=== PATIENT | female | born 1995 | race Two or more races ===

== ENCOUNTER 2017-01-14 02:31 | Emergency (ER) | payer OTHER ==
[~2017-01-14] VITALS: Ht 157.5 cm; Wt 54.9 kg
[2017-01-14] MEDS ORDERED: NKM (02:47)
[2017-01-14 02:50] VITALS: BP 130/98
[2017-01-14 03:14] LABS: APPEARANCE,URINE CLOUDY; KETONES,URINE 1+ (NEGATIVE); LEUKOCYTE ESTERASE ,URINE 1+ (NEGATIVE); NITRITE,URINE POSITIVE (NEGATIVE); PH,URINE 5 (4.5-8.0); PROTEIN,URINE 2+ (NEGATIVE); UROBILINOGEN,URINE 1 MG/DL (0.0-1.0)
--- NOTE | 2017-01-14 03:14 | Emergency Room Report ---
History of Present Illness General Chief Complaint: Vaginal Source: Patient Present Illness HPI 21 YO F with "heavy period today" and vaginal cramping with bleeding. Currently asymptomatic. LMP was 2 months ago, usually regular. Patient thinks this month is heavier "because it had 2 months of bleeding to do at once." Denies , states she did negative home test this week. Denies abd pain, nausea/vomiting, diarrhea, history of STDs. Took tylenol for pain with minimal improvement. Allergies: Coded Allergies: No Known Allergies (Unverified , 01/14/17) Patient History Past Medical History: none Past Surgical History: none Pertinent Family History: none Social History: Denies: alcohol use, drug use, smoking Last Menstrual Period: January Now: No Immunizations: UTD Reviewed Nursing Documentation: PMH: Agreed, PSxH: Agreed Nursing Documentation-PMH Past Medical History: No Stated History Review of Systems All Other Systems: negative except mentioned in HPI Physical Exam Vital Signs Date Time Temp Pulse Resp B/P Pulse Ox O2 Delivery O2 Flow Rate FiO2 01/14/17 02:44 98.4 78 16 137/91 100 Room Air Sp02 EP Interpretation: reviewed, normal General Appearance: normal inspection, well appearing, no apparent distress, alert, GCS 15, non-toxic Head: normocephalic, atraumatic Eyes: bilateral eye EOMI, bilateral eye PERRL ENT: normal ENT inspection, hearing grossly normal, normal voice Neck: normal inspection, full range of motion, supple, no bony tend Respiratory: normal inspection, lungs clear, normal breath sounds, no respiratory distress, no retraction, no wheezing Cardiovascular #1: regular rate, rhythm, no edema Gastrointestinal: normal inspection, normal bowel sounds, non tender, soft, no guarding, no hernia Genitourinary: no CVA tenderness Musculoskeletal: normal inspection, back normal, normal range of motion, Libertad' s Sign negative Neurologic: normal inspection, alert, oriented x3, responsive, sales forecast analyst III-XII nml as tested, motor strength/tone normal, speech normal Psychiatric: normal inspection, judgement/insight normal, mood/affect normal Skin: normal inspection, normal color, no rash Medical Decision Making Diagnostic Impression: Primary Impression: Vaginal bleeding Additional Impression: UTI (urinary tract infection) Qualified Codes: N30.01 - Acute cystitis with hematuria ER Course Urine preg negative UA: nitrite positive IM toradol given here Rx Ibuprofen PRN vaginal cramping, Macrobid for UTI PMD followup Return to ER for heavy bleeding, pain Last Vital Signs Date Time Temp Pulse Resp B/P Pulse Ox O2 Delivery O2 Flow Rate FiO2 01/14/17 02:50 98.4 87 16 130/98 100 Room Air Status: improved Disposition: HOME, SELF-CARE Scripts Ibuprofen* (MOTRIN*) 600 Mg Tablet 600 MG ORAL THREE TIMES A DAY for cramps, #30 TAB 0 Refills Prov: FOREIGN ARGUETA M.D. 01/14/17 Nitrofurantoin Monohyd/M-Cryst* (MACROBID 100 MG*) 100 Mg Capsule 100 MG ORAL EVERY 12 HOURS for 7 Days, #14 CAP Prov: FOREIGN ARGUETA M.D. 01/14/17 Referrals: NOT CHOSEN G[facility]ISON/,REFERRING (PCP) FOREIGN ARGUETA M.D. Jan 14, 2017 03:14
[2017-01-14 03:28] LABS: BACTERIA,URINE MANY /HPF; RBC,URINE TNTC /HPF (0 - 2); SQUAMOUS EPITHELIAL CELL,UR FEW /LPF (NONE/OCC)
[2017-01-14] MEDS ORDERED: Ketorolac 60mg Inj IM ONE (03:30)
[2017-01-14] MEDS ORDERED: NITROFURANTOIN100 M2 ORAL (03:36)
[2017-01-14] MEDS ORDERED: IBUPROFEN600 MG ORAL (03:36)
[2017-01-14 03:40] VITALS: BP 128/96
== END 2017-01-14 03:40 | disposition home or self-care (01) ==
LOC: EMR 02:56
DX: N30.01 Acute cystitis with hematuria (principal); N93.9 Abnormal uterine and vaginal bleeding, unspecified
CPT/HCPCS: 81003; 81025; 87086; 96372; 99284

== ENCOUNTER 2017-04-12 11:25 | Emergency (ER) | payer OTHER ==
[~2017-04-12] VITALS: Ht 157.5 cm; Wt 56.7 kg
[~2017-04-12 11:25] MED LIST: IBUPROFEN600 MG ORAL; NITROFURANTOIN100 M2 ORAL; NKM
[2017-04-12 12:22] VITALS: BP 102/60
[2017-04-12 12:35] LABS: APPEARANCE,URINE CLEAR; KETONES,URINE 1+ (NEGATIVE); LEUKOCYTE ESTERASE ,URINE 1+ (NEGATIVE); NITRITE,URINE NEGATIVE (NEGATIVE); PH,URINE 5 (4.5-8.0); PROTEIN,URINE 1+ (NEGATIVE); UROBILINOGEN,URINE 1 MG/DL (0.0-1.0)
[2017-04-12 12:45] LABS: BACTERIA,URINE FEW /HPF; MUCUS,URINE FEW /LPF (NONE/OCC); SQUAMOUS EPITHELIAL CELL,UR MODERATE /LPF (NONE/OCC)
--- NOTE | 2017-04-12 12:45 | Emergency Room Report ---
History of Present Illness General Chief Complaint: Abdominal Pain Source: Patient Present Illness HPI 21 -year-old female presents to the emergency department complaining of dysuria , lower abdominal fullness in addition to frequency x 1 week. Patient reports she had UTI 3 months ago. Patient states that she keeps feeling as though she needs to go to the bathroom however produces little urine when she does with moderate dysuria. Patient denies abdominal tenderness, denies vaginal discharge. Patient states her last menstrual period ended on the . Patient denies recent unprotected intercourse, vaginal discharge or lesions, patient denies dyspareunia. Denies hx of STD's. Patient states she is currently on Depo-Provera. Patient reports her abdominal discomfort has 5 out 10 in severity and described fullness/stretching sensation in the middle lower abdomen. She denies nausea, vomiting, fevers, chills, low back pain, constipation,diarrhea, or hematuria. She denies . Denies CP, Palpitations, LOC, AMS, dizziness, Changes in Vision, Sensation, paresthesias, or a sudden severe headache. Allergies: Coded Allergies: No Known Allergies (Unverified , 01/14/17) Patient History Past Medical History: see triage record Past Surgical History: none Pertinent Family History: none Last Menstrual Period: 03/14/17 Now: No Immunizations: UTD Reviewed Nursing Documentation: PMH: Agreed, PSxH: Agreed Nursing Documentation-PMH Past Medical History: No Stated History Review of Systems All Other Systems: negative except mentioned in HPI Physical Exam Vital Signs Date Time Temp Pulse Resp B/P Pulse Ox O2 Delivery O2 Flow Rate FiO2 04/12/17 11:32 98.1 69 15 102/60 95 Room Air Sp02 EP Interpretation: reviewed, normal General Appearance: no apparent distress, alert, GCS 15, non-toxic Head: normocephalic, atraumatic Eyes: bilateral eye PERRL, bilateral eye normal inspection ENT: hearing grossly normal, normal pharynx, no angioedema, normal voice Neck: full range of motion, supple/symm/no masses Respiratory: lungs clear, normal breath sounds, speaking full sentences Cardiovascular #1: regular rate, rhythm Gastrointestinal: normal bowel sounds, non tender, soft, non-distended, no guarding, no rebound Rectal: deferred Genitourinary: normal inspection, adnexa normal, cervix normal, os closed, other - no CMT or d/c noted on pelvic exam Musculoskeletal: back normal, gait/station normal, normal range of motion Neurologic: alert, oriented x3, responsive, motor strength/tone normal, sensory intact, speech normal Psychiatric: judgement/insight normal, memory normal, mood/affect normal Skin: normal color, no rash, warm/dry, well hydrated Lymphatic: no adenopathy Medical Decision Making PA Attestation Dr. Mcclellan is my supervising Physician whom patient management has been discussed with. Diagnostic Impression: Primary Impression: Dysuria Additional Impression: Cystitis ER Course 21 -year-old female presents to the emergency department complaining of dysuria , lower abdominal fullness in addition to frequency x 1 week. Patient reports she had UTI 3 months ago. Patient states that she keeps feeling as though she needs to go to the bathroom however produces little urine when she does with moderate dysuria. Patient denies abdominal tenderness, denies vaginal discharge. Patient states her last menstrual period ended on the 17. Patient denies recent unprotected intercourse, vaginal discharge or lesions, patient denies dyspareunia.Denies hx of STD's. Patient states she is currently on Depo-Provera. Patient reports her abdominal discomfort has 5 out 10 in severity and described fullness/stretching sensation in the middle lower abdomen. She denies nausea, vomiting, fevers, chills, low back pain, constipation,diarrhea, or hematuria. She denies . Ddx considered but are not limited to UTi , Pyelo, STI, Stone, Cystitis, , PID Vital signs: are WNL, pt. is afebrile H&PE are most consistent with UTI ORDERS: - UA labs are attached: no WBC's no leukocytes, some bacteria , moderate epithelial cells, rbc's noted- most indicative of contamination and cystitis, not consistent with infection. - Wet Mount: No Trich, no clue, No bacteria- many epithelial cells. ED INTERVENTIONS: -Pyridium d/w pt. the results of laboratory work. will try conservative treatment with and follow up with OBGYN. DISCHARGE: At this time pt. is stable for d/c to home. Will provide printed patient care instructions, and any necessary prescriptions. Care plan and follow up instructions have been discussed with the patient prior to discharge. Labs Test 04/12/17 12:05 Urine Color Yellow Urine Appearance Clear Urine pH 5 (4.5-8.0) Urine Specific [place] 1.020 (1.005-1.035) Urine Protein 1+ (NEGATIVE) Urine Glucose (UA) Negative (NEGATIVE) Urine Ketones 1+ (NEGATIVE) Urine Occult Blood 5+ (NEGATIVE) Urine Nitrite Negative (NEGATIVE) Urine Bilirubin Negative (NEGATIVE) Urine Urobilinogen 1 MG/DL (0.0-1.0) Urine Leukocyte Esterase 1+ (NEGATIVE) Urine RBC 10-15 /HPF (0 - 2) Urine WBC 2-4 /HPF (0 - 2) Urine Squamous Epithelial Cells Moderate /LPF (NONE/OCC) Urine Bacteria Few /HPF (NONE) Urine Mucus Few /LPF (NONE/OCC) Urine HCG, Qualitative Negative Last Vital Signs Date Time Temp Pulse Resp B/P Pulse Ox O2 Delivery O2 Flow Rate FiO2 04/12/17 12:22 98.1 15 102/60 95 Room Air 04/12/17 11:32 69 Disposition: HOME, SELF-CARE Condition: Stable Scripts Phenazopyridine Hcl* (PYRIDIUM*) 200 Mg Tablet 200 MG ORAL THREE TIMES A DAY for 3 Days, #10 TAB 0 Refills Prov: Giselle Clark 04/12/17 Referrals: [facility] (PCP) Patient Instructions: Dysuria, Interstitial Cystitis Additional Instructions: Take medications as directed. Follow up with PCP in 3-5 days Return sooner to ED if new symptoms occur, or current symptoms become worse. Pyridium will cause your urine to change color (Red/Clark), this is a normal side effect of the medication. - Please note that this Emergency Department Report was dictated using [employer] logic controller assembler technology software, occasionally this can lead to erroneous entry secondary to interpretation by the dictation equipment. Giselle Clark April 12, 2017 12:45
[2017-04-12] MEDS ORDERED: PHENAZOPYRIDIN200 MG ORAL (13:12)
[2017-04-12 13:15] VITALS: BP 102/60
== END 2017-04-12 13:15 | disposition home or self-care (01) ==
LOC: EMR 12:09
DX: R30.0 Dysuria (principal); N30.90 Cystitis, unspecified without hematuria
CPT/HCPCS: 58999; 81003; 81025; 87210; 99283

== ENCOUNTER 2017-05-08 02:41 | Inpatient (IN) | payer OTHER ==
[~2017-05-08] VITALS: Ht 157.5 cm; Wt 54.4 kg
[2017-05-08] VITALS (10 sets, daily range): BP systolic 111–130; BP diastolic 62–106
[~2017-05-08 02:41] MED LIST changes: +PHENAZOPYRIDIN200 MG ORAL
--- NOTE | 2017-05-08 03:25 | Emergency Room Report ---
History of Present Illness General Chief Complaint: Abdominal Pain Source: Patient, Significant Other Present Illness HPI Patient with few days of worsening suprapubic and RLQ pain. Menses is abnormal. No d/c. No fevers. Period is late and had been irregular. No dysuria. Pain is severe 9/10, constant, not radiating, aching pressure. No dizziness. No NVD. No meds taken. IAb last year September. No chest pain, SOB, cough, URI sy., rashes, extremity pain. No depression. Allergies: Coded Allergies: No Known Allergies (Unverified , 01/14/17) Patient History Past Medical History: see triage record Social History: Reports: drug use - thc, Denies: smoking Social History Narrative with boyfriend Last Menstrual Period: 04/30/17 Now: No Reviewed Nursing Documentation: PMH: Agreed, PSxH: Agreed Review of Systems All Other Systems: negative except mentioned in HPI Physical Exam Vital Signs Date Time Temp Pulse Resp B/P Pulse Ox O2 Delivery O2 Flow Rate FiO2 05/08/17 02:46 98.4 87 16 121/78 99 Room Air Sp02 EP Interpretation: reviewed, normal General Appearance: well appearing, no apparent distress, GCS 15 Head: normocephalic Eyes: bilateral eye PERRL, bilateral eye normal inspection ENT: moist mucus membranes Neck: supple Respiratory: lungs clear, normal breath sounds Cardiovascular #1: regular rate, rhythm Cardiovascular #2: 2+ radial (R) Gastrointestinal: normal inspection, normal bowel sounds, non tender, no mass, non-distended Genitourinary: cervix normal, os closed, other - vaginal blood and + CMT, normal size uterus Musculoskeletal: back normal, gait/station normal, normal range of motion Neurologic: alert, oriented x3, grossly normal Psychiatric: mood/affect normal Skin: normal inspection, warm/dry Procedures Critical Care Time Critical Care Time Total Critical Care Time: 30 min bedside evaluation and treatment excludes procedures (EKG). Reason for critical care: abdominal pain, ectopic with hemorrhage Possible complications: hypotension, hypertension, WA, shock, arrhythmias, metabolic acidosis, end organ damage, respiratory failure. Interventions: Hydration, pain control, consult with Ob for immediate intervention, repeated evaluations Course: Patient with abd pain and irreg menses. Eval with possible PID vs ectopic. U/S c/w ectopic with bleed. Repeated evaluations and treatment for pain. Emergent consultation with Ob. Arrange pre-op labs and for possible blood transfusion. Consultations: nursing staff, EMS, material handling warehouse supervisor Performed by: Dr. Mcclellan Tolerated well condition = serious Medical Decision Making Diagnostic Impression: Primary Impression: Ectopic Qualified Codes: O00.90 - Unspecified ectopic without intrauterine Additional Impressions: Early stage of Intraabdominal hemorrhage ER Course Patent with abnormal menses and lower abdominal pain. Ddx: PID, ectopic, appendicitis, ruptured ovarian cyst amongst others. Significant CMT - PID or ectopic most likely. Evaluation with labs, ultrasound. Treatment with IV hydration, reglan, benadryl. Exam c/w PID or ectopic. With elevated WBC will cover for PID. Needs admission. Preg found in lab review (not called). U/S c/w ectopic "a lot of blood". Quant 1501. Discussed with Dr. Landry at 6: 30. Pasty after ultrasound with increased pain. Morphine ordered. Dr. Landry here examining the patient. H/H drops 3 points. Needs urgent operation. VS stable. Blood ready. Admit Zachariah Simms. Laboratory Tests Test 05/08/17 03:50 05/08/17 05:40 White Blood Count 12.9 K/UL (4.8-10.8) H Red Blood Count 3.45 M/UL (4.20-5.40) L Hemoglobin 11.3 G/DL (12.0-16.0) L Hematocrit 33.4 % (37.0-47.0) L Mean Corpuscular Volume 97 FL (80-99) Mean Corpuscular Hemoglobin 32.9 PG (27.0-31.0) H Mean Corpuscular Hemoglobin Concent 33.9 G/DL (32.0-36.0) Red Cell Distribution Width 11.4 % (11.6-14.8) L Platelet Count 266 K/UL (150-450) Mean Platelet Volume 7.6 FL (6.5-10.1) Neutrophils (%) (Auto) 74.7 % (45.0-75.0) Lymphocytes (%) (Auto) 18.7 % (20.0-45.0) L Monocytes (%) (Auto) 5.5 % (1.0-10.0) Eosinophils (%) (Auto) 0.5 % (0.0-3.0) Basophils (%) (Auto) 0.6 % (0.0-2.0) Urine Color Yellow Urine Appearance Slightly cloudy Urine pH 5 (4.5-8.0) Urine Specific [place] 1.025 (1.005-1.035) Urine Protein 2+ (NEGATIVE) H Urine Glucose (UA) Negative (NEGATIVE) Urine Ketones 4+ (NEGATIVE) H Urine Occult Blood 5+ (NEGATIVE) H Urine Nitrite Negative (NEGATIVE) Urine Bilirubin Negative (NEGATIVE) Urine Urobilinogen 1 MG/DL (0.0-1.0) H Urine Leukocyte Esterase 1+ (NEGATIVE) H Urine RBC 20-30 /HPF (0 - 2) H Urine WBC 0-2 /HPF (0 - 2) Urine Squamous Epithelial Cells Many /LPF (NONE/OCC) H Urine Bacteria Few /HPF (NONE) Urine Mucus Many /LPF (NONE/OCC) H Urine Yeast Few /HPF (NONE) H Urine HCG, Qualitative Positive Sodium Level 140 mEQ/L (135-145) Potassium Level 3.5 mEQ/L (3.4-4.9) Chloride Level 99 mEQ/L (98-107) Carbon Dioxide Level 21 mEQ/L (20-30) Anion Gap 20 (5-15) H Blood Urea Nitrogen 7 mg/dL (7-23) Creatinine 0.5 mg/dL (0.5-0.9) Estimate Glomerular Filtration Rate > 60 mL/min (>60) Glucose Level 98 mg/dL (74-106) Calcium Level 9.5 mg/dL (8.6-10.2) Total Bilirubin 0.5 mg/dL (0.0-1.2) Aspartate Amino Transferase (AST) 19 U/L (5-40) Alanine Aminotransferase (ALT) 10 U/L (3-33) Alkaline Phosphatase 59 U/L (35-104) Total Protein 7.0 g/dL (6.6-8.7) Albumin 4.3 g/dL (3.5-5.2) Globulin 2.7 g/dL Albumin/Globulin Ratio 1.5 (1.0-2.7) Lipase 13 U/L (< 60) Human Chorionic Gonadotropin, Quant 1501 mIU/mL Repeat H/H 9.6/28.3 @ 7:35. EKG Diagnostic Results Rate: normal Rhythm: NSR ST Segments: no acute changes Rhythm Strip Diag. Results EP Interpretation: yes Rhythm: NSR, no PVC's, no ectopy CT/MRI/US Diagnostic Results CT/MRI/US Diagnostic Results : Imaging Test Ordered: pelvic u/s Impression fluid cds- suggested blood, no IUP Last Vital Signs Date Time Temp Pulse Resp B/P Pulse Ox O2 Delivery O2 Flow Rate FiO2 05/08/17 11:15 97.6 89 16 114/68 100 Nasal Cannula 3.0 Status: improved Disposition: ADMITTED INPATIENT Condition: Serious Nelson Mcclellan M.D. May 08, 2017 03:25
[2017-05-08] MEDS ORDERED: Metoclopramide 10mg/2ml Inj IVP ONE (03:30)
[2017-05-08] MEDS ORDERED: DiphenhydrAMINE 50mg/ml Inj IVP ONE (03:30)
[2017-05-08 04:03] LABS: BASOPHILS % (AUTO) 0.6 % (0.0-2.0); EOSINOPHILS % (AUTO) 0.5 % (0.0-3.0); LYMPHOCYTES % (AUTO) 18.7 % (20.0-45.0); MEAN CORPUSCULAR HEMOGLOBIN 32.9 PG (27.0-31.0); MEAN CORPUSCULAR HGB CONC 33.9 G/DL (32.0-36.0); MEAN CORPUSCULAR VOLUME 97 FL (80-99); MEAN PLATELET VOLUME 7.6 FL (6.5-10.1); MONOCYTES % (AUTO) 5.5 % (1.0-10.0); NEUTROPHILS % (AUTO) 74.7 % (45.0-75.0); PLATELET COUNT 266 K/UL (150-450); RED BLOOD COUNT 3.45 M/UL (4.20-5.40); RED CELL DISTRIBUTION WIDTH 11.4 % (11.6-14.8); WHITE BLOOD COUNT 12.9 K/UL (4.8-10.8)
[2017-05-08 04:07] LABS: APPEARANCE,URINE SLIGHTLY CLOUDY; KETONES,URINE 4+ (NEGATIVE); LEUKOCYTE ESTERASE ,URINE 1+ (NEGATIVE); NITRITE,URINE NEGATIVE (NEGATIVE); PH,URINE 5 (4.5-8.0); PROTEIN,URINE 2+ (NEGATIVE); UROBILINOGEN,URINE 1 MG/DL (0.0-1.0)
[2017-05-08 04:19] LABS: ALANINE AMINOTRANSFERASE 10 U/L (3-33); ALBUMIN/GLOBULIN RATIO 1.5 (1.0-2.7); ANION GAP 20 (5-15); ASPARTATE AMINO TRANSFERASE 19 U/L (5-40); CALCIUM 9.5 mg/dL (8.6-10.2); CARBON DIOXIDE 21 mEQ/L (20-30); CHLORIDE 99 mEQ/L (98-107); CREATININE 0.5 mg/dL (0.5-0.9); GLOMERULAR FILTRATION RATE > 60 mL/min (>60); HEMOLYSIS 48; LIPASE 13 U/L (< 60); POTASSIUM 3.5 mEQ/L (3.4-4.9); SODIUM 140 mEQ/L (135-145)
[2017-05-08 04:22] LABS: BACTERIA,URINE FEW /HPF; MUCUS,URINE MANY /LPF (NONE/OCC); RBC,URINE 20-30 /HPF (0 - 2); SQUAMOUS EPITHELIAL CELL,UR MANY /LPF (NONE/OCC); WBC,URINE 0-2 /HPF (0 - 2); YEAST,URINE FEW /HPF
[2017-05-08] MEDS ORDERED: cefTRIAXone 1 GM in NS 55 ML IVPB ONE (05:15)
[2017-05-08] MEDS ORDERED: metroNIDAZOLE 500mg 100 ML IVPB ONE (05:15)
[2017-05-08] MEDS ORDERED: Morphine Sulfate 2mg/ml Inj IVP ONE (06:45)
[2017-05-08 07:53] LABS: BASOPHILS % (AUTO) 0.7 % (0.0-2.0); EOSINOPHILS % (AUTO) 0.2 % (0.0-3.0); LYMPHOCYTES % (AUTO) 23.7 % (20.0-45.0); MEAN CORPUSCULAR HEMOGLOBIN 33.7 PG (27.0-31.0); MEAN CORPUSCULAR HGB CONC 33.9 G/DL (32.0-36.0); MEAN CORPUSCULAR VOLUME 99 FL (80-99); MEAN PLATELET VOLUME 7.6 FL (6.5-10.1); MONOCYTES % (AUTO) 5.1 % (1.0-10.0); NEUTROPHILS % (AUTO) 70.3 % (45.0-75.0); PLATELET COUNT 215 K/UL (150-450); RED BLOOD COUNT 2.85 M/UL (4.20-5.40); RED CELL DISTRIBUTION WIDTH 11.5 % (11.6-14.8)
[2017-05-08] MEDS ORDERED: Ropivacaine 5mg/ml Vial 20ml INJ ONE (08:48)
[2017-05-08] MEDS ORDERED: Lidocaine 1% MPF 10mg/ml 5ml ONE (09:00)
[2017-05-08] MEDS ORDERED: Nimbex 2mg/ml Inj 10ML IVP ONE (09:00)
[2017-05-08] MEDS ORDERED: fentaNYL 250mcg/5ml ONE (09:00)
[2017-05-08] MEDS ORDERED: Dexamethasone 4mg/ml vial ONE (09:00)
[2017-05-08] MEDS ORDERED: Midazolam 2mg/2ml Inj ONE (09:00)
[2017-05-08] MEDS ORDERED: Propofol 10mg/ml 20ml IV ONE (09:00)
[2017-05-08] MEDS ORDERED: Metoclopramide 10mg/2ml Inj ONE (09:00)
[2017-05-08] MEDS ORDERED: Ketorolac 30mg Inj ONE (09:00)
[2017-05-08] MEDS ORDERED: NS Irrig 1000ml ONE (09:00)
[2017-05-08] MEDS ORDERED: LR 1000ml ONE (09:00)
--- NOTE | 2017-05-08 09:07 | Anethesia Preoperative Eval ---
Anesthesia Pre-op PMH/ROS General Date of Evaluation: May 08, 2017 Anesthesiologist: Colin ASA Score: ASA 1 - E Mallampati Score Class I : Soft palate, uvula, fauces, pillars visible Class II: Soft palate, uvula, fauces visible Class III: Soft palate, base of uvula visible Class IV: Only hard plate visible Mallampati Classification: Class I Surgeon: Frantz Diagnosis: Ectopic Surgical Procedure: Laparoscopic salpingoscopy, salpingectomy Anesthesia History: none Family History: no anesthesia problems Allergies: Coded Allergies: No Known Allergies (Unverified , 01/14/17) Medications: see eMAR Past Medical History Cardiovascular: Denies: CAD, HTN, MO, arrhythmia, other, valve dz Pulmonary: Denies: COPD, BEST, asthma, other Gastrointestinal/Genitourinary: Denies: CRI, ESRD, GERD, other Neurologic/Psychiatric: Denies: CVA, TIA, dementia, depression/anxiety, other Endocrine: Denies: DM, hypothyroidism, other, steroids HEENT: Denies: CABAZON (L), CABAZON (R), cataract (L), cataract (R), glaucoma, other Hematology/Immune: Denies: DVT, anemia, bleeding disorder, other Musculoskeletal/Integumentary: Denies: DDD, DJD, OA, RA, edema, other PSxH Narrative: Denies Anesthesia Pre-op Phys. Exam Physician Exam Last Vital Signs Date Time Temp Pulse Resp B/P Pulse Ox O2 Delivery O2 Flow Rate FiO2 05/08/17 08:38 98.4 79 15 113/106 100 Room Air Constitutional: NAD Cardiovascular: RRR Respiratory: CTA Airway Exam Mallampati Score: Class I MO: full ROM: full Teeth: intact Anesthesia Pre-op A/P Labs Hematology Test 05/08/17 03:50 05/08/17 07:35 White Blood Count 12.9 K/UL (4.8-10.8) H 12.0 K/UL (4.8-10.8) H Red Blood Count 3.45 M/UL (4.20-5.40) L 2.85 M/UL (4.20-5.40) L Hemoglobin 11.3 G/DL (12.0-16.0) L 9.6 G/DL (12.0-16.0) L Hematocrit 33.4 % (37.0-47.0) L 28.3 % (37.0-47.0) L Mean Corpuscular Volume 97 FL (80-99) 99 FL (80-99) Mean Corpuscular Hemoglobin 32.9 PG (27.0-31.0) H 33.7 PG (27.0-31.0) H Mean Corpuscular Hemoglobin Concent 33.9 G/DL (32.0-36.0) 33.9 G/DL (32.0-36.0) Red Cell Distribution Width 11.4 % (11.6-14.8) L 11.5 % (11.6-14.8) L Platelet Count 266 K/UL (150-450) 215 K/UL (150-450) Mean Platelet Volume 7.6 FL (6.5-10.1) 7.6 FL (6.5-10.1) Neutrophils (%) (Auto) 74.7 % (45.0-75.0) 70.3 % (45.0-75.0) Lymphocytes (%) (Auto) 18.7 % (20.0-45.0) L 23.7 % (20.0-45.0) Monocytes (%) (Auto) 5.5 % (1.0-10.0) 5.1 % (1.0-10.0) Eosinophils (%) (Auto) 0.5 % (0.0-3.0) 0.2 % (0.0-3.0) Basophils (%) (Auto) 0.6 % (0.0-2.0) 0.7 % (0.0-2.0) Chemistry Test 05/08/17 03:50 05/08/17 05:40 Sodium Level 140 mEQ/L (135-145) Potassium Level 3.5 mEQ/L (3.4-4.9) Chloride Level 99 mEQ/L (98-107) Carbon Dioxide Level 21 mEQ/L (20-30) Anion Gap 20 (5-15) H Blood Urea Nitrogen 7 mg/dL (7-23) Creatinine 0.5 mg/dL (0.5-0.9) Estimat Glomerular Filtration Rate > 60 mL/min (>60) Glucose Level 98 mg/dL (74-106) Calcium Level 9.5 mg/dL (8.6-10.2) Total Bilirubin 0.5 mg/dL (0.0-1.2) Aspartate Amino Transf (AST/SGOT) 19 U/L (5-40) Alanine Aminotransferase (ALT/SGPT) 10 U/L (3-33) Alkaline Phosphatase 59 U/L (35-104) Total Protein 7.0 g/dL (6.6-8.7) Albumin 4.3 g/dL (3.5-5.2) Globulin 2.7 g/dL Albumin/Globulin Ratio 1.5 (1.0-2.7) Lipase 13 U/L (< 60) Human Chorionic Gonadotropin, Quant 1501 mIU/mL Urine Test Test 05/08/17 03:50 Urine HCG, Qualitative Positive Studies Pre-op Studies: EKG - sr Risk Assessment & Plan Assessment: ASA IE Plan: GA Status Change Before Surgery: No Pre-Antibiotics Drug: Ancef 1g Given Within 1 Hr of Incision: Yes Time Given: 09:15 SHARONDA DAVIES M.D. May 08, 2017 09:07
--- NOTE | 2017-05-08 09:15 | Pre-Procedure Note/Attestation ---
Pre-Procedure Note/Attestation Complete Prior to Procedure Procedure Narrative: diagnostic laparoscopy, possible salpingectomy, possible salpingostomy, dilation and curettage Indications for Procedure Pre-Operative Diagnosis: hemoperitoneum, pain cg 1200 Attestation I attest that I discussed the nature of the procedure; its benefits; risks and complications; and alternatives (and the risks and benefits of such alternatives ), prior to the procedure, with the patient (or the patient's legal retail customer service representative). I attest that, if there was a reasonable possibility of needing a blood transfusion, the patient (or the patient's legal retail customer service representative) was given the [facility] standardized written summary, pursuant to the [place] Blood Safety Act ([place] Health and Safety Code # 1645, as amended). I attest that I re-evaluated the patient just prior to the surgery and that there has been no change in the patient's H&P, except as documented below: URSULA GRIJALVA May 08, 2017 09:15
[2017-05-08] MEDS ORDERED: LR 1000ml 1,000 ML IVLG SCH (09:26)
[2017-05-08] MEDS ORDERED: Midazolam 2mg/2ml Inj IVP PRN (09:30)
[2017-05-08] MEDS ORDERED: HYDROmorphone 1mg/ml Carpuject SUBQ PRN (09:30)
[2017-05-08] MEDS ORDERED: Hydromorphone 0.5mg/0.5ml inj IVP PRN (09:30)
[2017-05-08] MEDS ORDERED: Tylenol #3 tab (300mg/30mg) ORAL PRN (09:30)
[2017-05-08] MEDS ORDERED: DiphenhydrAMINE 50mg/ml Inj IVP PRN ×2 (09:30)
[2017-05-08] MEDS ORDERED: Metoclopramide 10mg/2ml Inj IVP PRN (09:30)
[2017-05-08] MEDS ORDERED: fentaNYL 100 mcg/2 mL IV PRN (09:30)
[2017-05-08] MEDS ORDERED: Norco 5mg/325mg tab ORAL PRN (09:30)
[2017-05-08] MEDS ORDERED: NS Irrig 1000ml IRRIG ONE (09:57)
[2017-05-08] MEDS ORDERED: Zolpidem 5mg tab ORAL PRN (10:15)
[2017-05-08] MEDS ORDERED: Morphine Sulfate 2mg/ml Inj IVP PRN (10:15)
[2017-05-08] MEDS ORDERED: LORazepam Inj 2mg/ml 1ml IV PRN (10:15)
[2017-05-08] MEDS ORDERED: Miralax 17gm pkt ORAL PRN (10:15)
[2017-05-08] MEDS ORDERED: Mylanta II UD 30ml ORAL PRN (10:15)
--- NOTE | 2017-05-08 10:36 | Immediate Post-Op Evaluation ---
Immediate Post-Op Evalulation Immediate Post-Op Evalulation Procedure: Laparoscopic salpingoscopy, excision ectopic Date of Evaluation: May 08, 2017 Time of Evaluation: 10:38 IV Fluids: 1.2L Blood Products: 0 Estimated Blood Loss: 700 Urinary Output: 700 Blood Pressure Systolic: 129 Blood Pressure Diastolic: 77 Pulse Rate: 117 Respiratory Rate: 17 O2 Sat by Pulse Oximetry: 100 Temperature (Fahrenheit): 97.4 Pain Score (1-10): 0 Nausea: No Vomiting: No Complications 0 Patient Status: awake, reacts, patent, none Hydration Status: adequate Drug: Ancef 1g Given Within 1 Hr of Incision: Yes Time Given: 09:15 SHARONDA DAVIES M.D. May 08, 2017 10:36
[2017-05-08] MEDS ORDERED: D5 1/2NS 1,000 ML IV SCH (12:00)
[2017-05-08] MEDS ORDERED: D5 1/2NS 1000ml IV ONE (14:06)
[2017-05-09 08:58] VITALS: BP 114/68
--- NOTE | 2017-05-09 08:58 | 48 Hour Post Anesthesia Eval ---
Post Anesthesia Evaluation Procedure: Laparoscopic salpingoscopy, excision ectopic Date of Evaluation: May 08, 2017 Time of Evaluation: 11:30 Blood Pressure Systolic: 114 0: 68 Pulse Rate: 89 Respiratory Rate: 16 Temperature (Fahrenheit): 97.6 O2 Sat by Pulse Oximetry: 100 Airway: patent Nausea: No Vomiting: No Pain Intensity: 1 Hydration Status: adequate Cardiopulmonary Status: at baseline Mental Status/LOC: patient returned to baseline Post-Anesthesia Complications: 0 Follow-up care needed: ready to discharge SHARONDA DAVIES M.D. May 09, 2017 08:58
--- NOTE | 2017-05-09 09:48 | Brief Operative Note ---
Immediate Post Operative Note Operative Note Pre-op Diagnosis: hemoperitoneum, pain bhcg 1200 Procedure: laparoscopic right salpingectomy, dilation and curettage Post-op Diagnosis: right ruptured ectopic Surgeon: ben Anesthesia: general Specimen: yes Complications: none Condition: stable Fluids: per anesthesia Estimated Blood Loss: volume - 400 cc hemoperitoneum Drains: none Implant(s) used?: No URSULA GRIJALVA May 09, 2017 09:48
--- NOTE | 2017-05-09 20:07 | Cardiology Report ---
APPROVED REPORT EKG Measurement Heart [id number] Sinus rhythm with marked sinus arrhythmia Otherwise normal ECG
--- NOTE | 2017-05-10 08:01 | History and Physical Report ---
DATE: 05/08/2017 GYNECOLOGY EVALUATION REASON FOR EVALUATION: The patient is a 21-year-old, G1, P0, who presents to the emergency room for lower abdominal pain. HISTORY OF PRESENT ILLNESS: The patient is a 21-year-old, who presented to the emergency room on 04/14/2017. She presents to the emergency room of [facility] with lower abdominal pain more on the right side. The patient also had a few days of bleeding, which is early to have her period. Her last period one started on 04/14/2017. The patient was unaware that she was and the test was positive in the emergency room and she was previously in the emergency room for bladder infection on 04/12/2017 and at that point, her test was negative. PAST MEDICAL HISTORY: None. PAST SURGICAL HISTORY: None. ALLERGIES: None. SOCIAL HISTORY: The patient lives with her boyfriend and her boyfriend's mother. PHYSICAL EXAMINATION: VITAL SIGNS: Blood pressure 110/70, respiratory rate 18, temperature afebrile, and heart rate 86. HEAD AND NECK: Pupils are equal and reactive to light. LUNGS: Deferred to the ER doctor. CARDIAC: Deferred to the ER doctor. ABDOMEN: Soft, slightly distended. Rebound and guarding, right lower quadrant. PELVIC: Exam is deferred. As per the patient's request emergency room physician performed and she had cervical motion tenderness and extreme pain after the pelvic exam. LABORATORY AND DIAGNOSTIC DATA: Ultrasound performed on 05/08/2017, revealed no intrauterine and moderate blood in the pelvis and abdomen. Her white count was slightly increased at 12.4. ASSESSMENT: The patient is a 21-year-old, G1, P0, with bleeding. No intrauterine and blood in the abdomen. Also rebound and guarding on exam consistent with a surgical abdomen. PLAN: Plan is for diagnostic laparoscopy and probable salpingostomy versus salpingectomy for ruptured ectopic . Keri Landry M.D. DR: ANNETTE JOB#: [id number] CC: RAMU
--- NOTE | 2017-05-10 08:25 | Discharge Summary ---
Discharge Summary Hospital Course Date of Admission May 08, 2017 at 06:28 Date of Discharge May 08, 2017 at 14:07 Admitting Diagnosis right ectopic Reason for Hospitalization: right ectopic , likely intraabdominal hemorrhage LUIS Ng is a 21 year old female who was admitted on May 08, 2017 at 06:28 for Pelvic Inflammatory Disease Procedures s/p 05/08 -laparoscopic right salpingectomy, dilation and curettage Hospital Course US revealed R ectopic and fluid in cds suggestive of blood HCG 1501 mild leucocytosis, increasing lower abdominal pain medicated for pain in ED HH dropped 3 points, blood on standby if needed READING INTERVENTIONIST consult urgently requested patient was seen and examined in ER and taken to surgery s/p laparoscopic right salpingectomy, dilation and curettage 05/08 400 cc hemoperitoneum HH -9.6/28.3 pain management on the floor patient voided pain controlled tolerated diet surgeon cleared for dc and fup as outpatient with READING INTERVENTIONIST due to rapid and unexpected improvement in patient condition, the patient was discharged in 1 day FINAL DIAGNOSES R ruptured ectopic hemoperitoneum s/p 05/08 -laparoscopic right salpingectomy, dilation and curettage Discharge Condition Upon Discharge: stable Discharge Disposition Patient was discharged to Home (01) Discharge Diagnoses: Discharge Instructions Discharge Instructions Special Instructions I have been assigned to complete a D/C Summary on this account. I was not involved in the patient management Colleen Goss NP ([place]) May 10, 2017 08:25
--- NOTE | 2017-05-10 09:01 | Operative Note - Dictated ---
DATE OF OPERATION: 05/08/2017 PREOPERATIVE DIAGNOSIS: Ruptured ectopic , right side. POSTOPERATIVE DIAGNOSIS: Ruptured ectopic , right side. PROCEDURE: Diagnostic laparoscopy, right salpingectomy, dilatation and curettage. SURGEON: Keri Landry M.D. ANESTHESIOLOGIST: Magda Du M.D. ANESTHESIA: General endotracheal. ESTIMATED BLOOD LOSS: Minimal with surgery but about 400 mL pneumoperitoneum. COMPLICATIONS: None. Right tube and ovary within normal limits. Left ovary within normal limits. A large left ampullary ectopic with bleeding from the distal end. PROCEDURE IN DETAIL: After ensuring informed consent, the patient was taken to the operating room where general anesthesia was induced. The patient was sterilely prepped and draped and placed in dorsal lithotomy position with legs up in [place] stirrups. Weighted speculum was placed in the vagina. Cervix was easily dilated to a 8 Hegar dilator. Endometrial contents were sampled and a HUMI type manipulator was placed inside the uterine cavity. Next, attention was turned to the abdomen where a small incision was made in the umbilicus. After injection of local anesthetic, Veress needle was placed inside the peritoneal cavity and intraperitoneal placement was confirmed with low opening pressures. Next, a 5 millimeter trocar was placed inside the peritoneal cavity and intraperitoneal placement was confirmed with the laparoscope. Next, left lateral 5 mm port was introduced under direct visualization and a 10 mm suprapubic port was introduced under direct visualization. The pelvis was explored. There was a large ruptured right ampullary ectopic with bleeding from the distal end and about 450 mL of blood in the peritoneal cavity. Considering how large and distended the tube was ( hydrosalpinx) and the bleeding. A decision was made to proceed with salpingectomy. Right tube was removed with laparoscopic bipolar cautery instrument. Mainly the broad ligament was first cauterized and then transected until all of the tube were removed. Tube was placed in an endobag and removed through the 10 mm port. Again, pelvis was explored, excellent hemostasis was assured. Left tube and ovary and right ovary were normal. All the blood was suctioned off. The patient was taken to the recovery area, extubated in stable condition. All instrument and lap counts were correct x3. Please also note that all the ports were removed under direct visualization and the fascial incision with 10 mm port was closed with 0 Vicryl and the other 3 incisions were closed with 4-0 Monocryl and Steri-Strips. Keri Landry M.D. DR: ARPITA JOB#: [id number] CC: RAMU
== END 2017-05-08 14:07 | disposition home or self-care (01) | DRG 545 ==
LOC: EMR 03:37 → EDBEDREQ 06:26 → 4E 06:28 → EDBEDREQ 06:49 → 4E 10:56
PROC: 0UT54ZZ Resection of Right Fallopian Tube, Percutaneous Endoscopic Approach (ICD-10-PCS; 2017-05-08)
PROC: 10T24ZZ Resection of Products of Conception, Ectopic, Percutaneous Endoscopic Approach (ICD-10-PCS; principal; 2017-05-08 09:00)
DX: O00.10 Tubal pregnancy without intrauterine pregnancy (principal)
CPT/HCPCS: 36415; 76830; 76856; 80053; 81003; 81025; 83690; 84702; 85025; 86850; 86900; 86901; 86920; 87086; 87210; 93005; 94003; 94150; J2250; J2405; J2765

== ENCOUNTER 2017-08-16 07:50 | Emergency (ER) | payer MEDICAID, OTHER ==
[~2017-08-16] VITALS: Ht 157.5 cm; Wt 52.2 kg
[2017-08-16 08:03] VITALS: BP 109/71
--- NOTE | 2017-08-16 08:18 | Emergency Room Report ---
History of Present Illness General Chief Complaint: Vomiting Source: Patient Present Illness HPI 21-year-old female presents ED for evaluation. States that since yesterday she' s been vomiting. In triage patient denies any abdominal pain but states that she is having some epigastric discomfort, 3/10, and dull, nonradiating. Denies fevers or chills. Denies chest pain shortness of breath. Patient states she is not sure if she is . Patient was recently admitted here for ruptured ectopic . Patient denies any vaginal bleeding or discharge. No other aggravating relieving factors. Denies any other associated symptoms Allergies: Coded Allergies: No Known Allergies (Unverified , 01/14/17) Patient History Past Medical History: none Past Surgical History: none Pertinent Family History: none Social History: Denies: smoking, alcohol use, drug use Last Menstrual Period: 07/16/16 Now: No Immunizations: UTD Reviewed Nursing Documentation: PMH: Agreed, PSxH: Agreed Nursing Documentation-PMH Past Medical History: No Stated History Review of Systems All Other Systems: negative except mentioned in HPI Physical Exam Vital Signs Date Time Temp Pulse Resp B/P (MAP) Pulse Ox O2 Delivery O2 Flow Rate FiO2 08/16/17 07:53 98.1 84 20 117/74 99 Room Air Sp02 EP Interpretation: reviewed, normal General Appearance: no apparent distress, alert, GCS 15, non-toxic Head: normocephalic, atraumatic Eyes: bilateral eye normal inspection, bilateral eye PERRL ENT: hearing grossly normal, normal pharynx, no angioedema, normal voice Neck: full range of motion, supple/symm/no masses Respiratory: chest non-tender, lungs clear, normal breath sounds, speaking full sentences Cardiovascular #1: regular rate, rhythm, no edema Cardiovascular #2: 2+ carotid (R), 2+ carotid (L), 2+ radial (R), 2+ radial (L) , 2+ dorsalis pedis (R), 2+ dorsalis pedis (L) Gastrointestinal: normal bowel sounds, non tender, soft, non-distended, no guarding, no rebound Rectal: deferred Genitourinary: normal inspection, no CVA tenderness Musculoskeletal: back normal, gait/station normal, normal range of motion, non- tender Neurologic: alert, oriented x3, responsive, motor strength/tone normal, sensory intact, speech normal Psychiatric: judgement/insight normal, memory normal, mood/affect normal, no suicidal/homicidal ideation Reflexes: 3+ bicep (R), 3+ bicep (L), 3+ tricep (R), 3+ tricep (L), 3+ knee (R) , 3+ knee (L) Skin: normal color, no rash, warm/dry, well hydrated Lymphatic: no adenopathy Medical Decision Making Diagnostic Impression: Primary Impression: Threatened ER Course Hospital Course 21-year-old female presents to ED complaining of vomiting Differential diagnoses include: gastrits, gastroenterits, ectopic , ovarian torsion/cyst, UTI Clinical course Patient placed on stretcher in ED. After initial history and physical I ordered labs, IV fluids, zofran Labs-no leukocytosis, electrolytes okay, beta hCG positive, ua negative I ordered pelvic ultrasound, beta hCG quantitative Beta hCG quantitative 29,000 Pelvic ultrasound-IUP with pole, no definitive cardiac activity Discussed findings with patient. Patient had recent rupture ectopic . As of right now findings either early versus threatened . Patient will need followup with DATA ANALYTICS DEVELOPER Diagnosis - threatened Stable and discharged to home with Rx zofran. Followup with PMD/DATA ANALYTICS DEVELOPER. Return to ED if symptoms recur or worsen Labs Test 08/16/17 08:00 08/16/17 08:20 Urine Color Yellow Urine Appearance Slightly cloudy Urine pH 5 (4.5-8.0) Urine Specific [place] 1.025 (1.005-1.035) Urine Protein 2+ (NEGATIVE) Urine Glucose (UA) Negative (NEGATIVE) Urine Ketones 3+ (NEGATIVE) Urine Occult Blood 4+ (NEGATIVE) Urine Nitrite Negative (NEGATIVE) Urine Bilirubin Negative (NEGATIVE) Urine Urobilinogen 1 MG/DL (0.0-1.0) Urine Leukocyte Esterase 2+ (NEGATIVE) Urine RBC 5-10 /HPF (0 - 2) Urine WBC 2-4 /HPF (0 - 2) Urine Squamous Epithelial Cells Moderate /LPF (NONE/OCC) Urine Bacteria Few /HPF (NONE) Urine HCG, Qualitative Positive White Blood Count 12.1 K/UL (4.8-10.8) Red Blood Count 4.08 M/UL (4.20-5.40) Hemoglobin 13.4 G/DL (12.0-16.0) Hematocrit 39.4 % (37.0-47.0) Mean Corpuscular Volume 97 FL (80-99) Mean Corpuscular Hemoglobin 33.0 PG (27.0-31.0) Mean Corpuscular Hemoglobin Concent 34.1 G/DL (32.0-36.0) Red Cell Distribution Width 11.0 % (11.6-14.8) Platelet Count 281 K/UL (150-450) Mean Platelet Volume 7.1 FL (6.5-10.1) Neutrophils (%) (Auto) 68.0 % (45.0-75.0) Lymphocytes (%) (Auto) 25.0 % (20.0-45.0) Monocytes (%) (Auto) 5.9 % (1.0-10.0) Eosinophils (%) (Auto) 0.5 % (0.0-3.0) Basophils (%) (Auto) 0.7 % (0.0-2.0) Sodium Level 137 mEQ/L (135-145) Potassium Level 3.6 mEQ/L (3.4-4.9) Chloride Level 102 mEQ/L (98-107) Carbon Dioxide Level 20 mEQ/L (20-30) Anion Gap 15 (5-15) Blood Urea Nitrogen 6 mg/dL (7-23) Creatinine 0.4 mg/dL (0.5-0.9) Estimat Glomerular Filtration Rate > 60 mL/min (>60) Glucose Level 94 mg/dL (74-106) Calcium Level 9.5 mg/dL (8.6-10.2) Total Bilirubin 0.3 mg/dL (0.0-1.2) Aspartate Amino Transf (AST/SGOT) 15 U/L (5-40) Alanine Aminotransferase (ALT/SGPT) 11 U/L (3-33) Alkaline Phosphatase 73 U/L (35-104) Total Protein 7.2 g/dL (6.6-8.7) Albumin 4.2 g/dL (3.5-5.2) Globulin 3.0 g/dL Albumin/Globulin Ratio 1.4 (1.0-2.7) Lipase 14 U/L (< 60) Human Chorionic Gonadotropin, Quant 22325 mIU/mL CT/MRI/US Diagnostic Results CT/MRI/US Diagnostic Results : Imaging Test Ordered: OB US Impression Intrauterine . pole noted. No cardiac motion identified. minimal free fluid in cul-de-sac. Bilateral ovaries no acute process Last Vital Signs Date Time Temp Pulse Resp B/P (MAP) Pulse Ox O2 Delivery O2 Flow Rate FiO2 08/16/17 07:53 98.1 84 20 117/74 99 Room Air Status: improved Disposition: HOME, SELF-CARE Condition: Stable Scripts Ondansetron Odt* (ZOFRAN ODT*) 4 Mg Tab.rapdis 4 MG ORAL Q6H Y for Nausea & Vomiting, #30 TAB 0 Refills Prov: CHAY SWANN M.D. 08/16/17 CHAY SWANN M.D. Aug 16, 2017 08:18
[2017-08-16 08:34] LABS: APPEARANCE,URINE SLIGHTLY CLOUDY; KETONES,URINE 3+ (NEGATIVE); LEUKOCYTE ESTERASE ,URINE 2+ (NEGATIVE); NITRITE,URINE NEGATIVE (NEGATIVE); PH,URINE 5 (4.5-8.0); PROTEIN,URINE 2+ (NEGATIVE); UROBILINOGEN,URINE 1 MG/DL (0.0-1.0)
[2017-08-16 08:36] LABS: BASOPHILS % (AUTO) 0.7 % (0.0-2.0); EOSINOPHILS % (AUTO) 0.5 % (0.0-3.0); MEAN CORPUSCULAR HGB CONC 34.1 G/DL (32.0-36.0); MEAN CORPUSCULAR VOLUME 97 FL (80-99); MEAN PLATELET VOLUME 7.1 FL (6.5-10.1); MONOCYTES % (AUTO) 5.9 % (1.0-10.0); PLATELET COUNT 281 K/UL (150-450); RED BLOOD COUNT 4.08 M/UL (4.20-5.40); WHITE BLOOD COUNT 12.1 K/UL (4.8-10.8)
[2017-08-16 08:48] LABS: ALANINE AMINOTRANSFERASE 11 U/L (3-33); ALBUMIN/GLOBULIN RATIO 1.4 (1.0-2.7); ANION GAP 15 (5-15); ASPARTATE AMINO TRANSFERASE 15 U/L (5-40); CALCIUM 9.5 mg/dL (8.6-10.2); CARBON DIOXIDE 20 mEQ/L (20-30); CHLORIDE 102 mEQ/L (98-107); CREATININE 0.4 mg/dL (0.5-0.9); GLOMERULAR FILTRATION RATE > 60 mL/min (>60); HEMOLYSIS 7; LIPASE 14 U/L (< 60); POTASSIUM 3.6 mEQ/L (3.4-4.9); SODIUM 137 mEQ/L (135-145); TOTAL PROTEIN 7.2 g/dL (6.6-8.7)
[2017-08-16 08:48] LABS: BACTERIA,URINE FEW /HPF; SQUAMOUS EPITHELIAL CELL,UR MODERATE /LPF (NONE/OCC)
[2017-08-16 10:30] VITALS: BP 100/65
[2017-08-16] MEDS ORDERED: ZOFRAN ODT4 MG ORAL (10:54)
[2017-08-16 10:59] VITALS: BP 100/65
--- NOTE | 2017-08-16 15:06 | Diagnostic Imaging Report ---
Indication:Pelvic pain. Positive Technique: Grayscale and duplex Doppler imaging of the pelvis performed utilizing a transabdominal scan and endovaginal scan. Comparison: None Findings: There is a question of a pole. A yolk sac is seen with a gestational sac. Viability is indeterminate at this time. Based on the medial side diameter, a gestational age is under 5 weeks. Recommend repeat ultrasound and followup quantitative beta hCG. Uterus measures 9.5 x 5.5 x 5 cm. The ovaries are unremarkable. Impression: Evidence of intrauterine . Viability indeterminate at this time. Considerations include incomplete versus early IUP. Followup ultrasound and beta hCG recommended.
== END 2017-08-16 10:59 | disposition home or self-care (01) ==
LOC: EMR 08:20
DX: O20.0 Threatened abortion (principal)
CPT/HCPCS: 36415; 76801; 76830; 80053; 81003; 81025; 83690; 84702; 85025; 96361; 96374; 96375; 99284; J2405; S0028

== ENCOUNTER 2017-08-18 18:08 | Emergency (ER) | payer MEDICAID, OTHER ==
[~2017-08-18] VITALS: Ht 157.5 cm; Wt 48.1 kg
[~2017-08-18 18:08] MED LIST changes: +ZOFRAN ODT4 MG ORAL
[2017-08-18 19:01] LABS: KETONES,URINE 4+ (NEGATIVE); LEUKOCYTE ESTERASE ,URINE 2+ (NEGATIVE); NITRITE,URINE NEGATIVE (NEGATIVE); PH,URINE 5 (4.5-8.0); PROTEIN,URINE 3+ (NEGATIVE); UROBILINOGEN,URINE 8 MG/DL (0.0-1.0)
[2017-08-18 19:06] LABS: APPEARANCE,URINE SLIGHTLY CLOUDY
[2017-08-18 19:12] LABS: SQUAMOUS EPITHELIAL CELL,UR FEW /LPF (NONE/OCC)
[2017-08-18 19:13] LABS: BACTERIA,URINE MANY /HPF; ICTOTEST NEGATIVE
[2017-08-18 19:25] VITALS: BP 126/81
[2017-08-18 19:47] LABS: BASOPHILS % (AUTO) 0.5 % (0.0-2.0); EOSINOPHILS % (AUTO) 0.1 % (0.0-3.0); LYMPHOCYTES % (AUTO) 13.5 % (20.0-45.0); MEAN CORPUSCULAR HEMOGLOBIN 32.1 PG (27.0-31.0); MEAN CORPUSCULAR HGB CONC 33.5 G/DL (32.0-36.0); MEAN CORPUSCULAR VOLUME 96 FL (80-99); MEAN PLATELET VOLUME 6.5 FL (6.5-10.1); MONOCYTES % (AUTO) 6.2 % (1.0-10.0); NEUTROPHILS % (AUTO) 79.7 % (45.0-75.0); PLATELET COUNT 285 K/UL (150-450); RED BLOOD COUNT 4.16 M/UL (4.20-5.40); RED CELL DISTRIBUTION WIDTH 10.6 % (11.6-14.8); WHITE BLOOD COUNT 13.8 K/UL (4.8-10.8)
[2017-08-18 19:56] LABS: PROTHROMBIN TIME 10.5 SEC (9.30-11.50)
[2017-08-18 20:04] LABS: ALANINE AMINOTRANSFERASE 29 U/L (3-33); ALBUMIN/GLOBULIN RATIO 1.5 (1.0-2.7); ANION GAP 19 (5-15); ASPARTATE AMINO TRANSFERASE 29 U/L (5-40); CALCIUM 9.9 mg/dL (8.6-10.2); CARBON DIOXIDE 19 mEQ/L (20-30); CHLORIDE 100 mEQ/L (98-107); CREATININE 0.5 mg/dL (0.5-0.9); GLOMERULAR FILTRATION RATE > 60 mL/min (>60); HEMOLYSIS 5; POTASSIUM 3.4 mEQ/L (3.4-4.9); SODIUM 138 mEQ/L (135-145); TOTAL PROTEIN 7.7 g/dL (6.6-8.7)
[2017-08-18] MEDS ORDERED: PRENATAL VITAM1 EACH PO (20:30)
[2017-08-18] MEDS ORDERED: ZOFRAN4 M3 ORAL (20:30)
[2017-08-18 20:37] VITALS: BP 126/81
[2017-08-18 20:37] LABS: BILIRUBIN,DIRECT 0.4 mg/dL (0.1-0.3)
--- NOTE | 2017-08-18 21:50 | Emergency Room Report ---
History of Present Illness General Chief Complaint: Vomiting Source: Patient Present Illness HPI The patient is a 21-year-old female at approximately 6 weeks gestation presenting for continued nausea and vomiting. She was seen in this emergency department 2 days prior for same complaint. The patient had blood work and ultrasound done which showed intrauterine with pole but was unable to attain heart rate. The patient denies any abdominal pain or vaginal bleeding. She was prescribed Zofran ODT which she states has not been helping. She states that she has used Zofran before in tablet form which works for her. Denies any other symptoms including fever, chills, back pain, dysuria, hematuria , dizziness, blurred vision, headache, SOB Allergies: Coded Allergies: No Known Allergies (Unverified , 01/14/17) Patient History Past Medical History: see triage record Pertinent Family History: none Last Menstrual Period: 07/11/2017 Now: Yes : 2 Para: 0 Reviewed Nursing Documentation: PMH: Agreed, PSxH: Agreed Nursing Documentation-PMH Past Medical History: No Stated History Review of Systems All Other Systems: negative except mentioned in HPI Physical Exam Vital Signs Date Time Temp Pulse Resp B/P (MAP) Pulse Ox O2 Delivery O2 Flow Rate FiO2 08/18/17 18:15 97.2 104 16 119/82 99 Room Air Sp02 EP Interpretation: reviewed, normal General Appearance: no apparent distress, alert, GCS 15, non-toxic Head: normocephalic, atraumatic Eyes: bilateral eye normal inspection, bilateral eye PERRL ENT: hearing grossly normal, normal pharynx, no angioedema, normal voice Neck: full range of motion, supple/symm/no masses Respiratory: chest non-tender, lungs clear, normal breath sounds, speaking full sentences Cardiovascular #1: regular rate, rhythm, no edema Gastrointestinal: normal bowel sounds, non tender, soft, non-distended, no guarding, no rebound Genitourinary: normal inspection, no CVA tenderness Musculoskeletal: back normal, gait/station normal, normal range of motion, non- tender, calf tenderness Neurologic: alert, oriented x3, responsive, motor strength/tone normal, sensory intact, speech normal Skin: normal color, no rash, warm/dry, well hydrated Medical Decision Making PA Attestation Dr. Stauffer is my supervising physician. Patient management was discussed with my supervising physician Diagnostic Impression: Primary Impression: Nausea & vomiting Qualified Codes: R11.2 - Nausea with vomiting, unspecified Additional Impression: First trimester ER Course The patient is a 21-year-old female at approximately 6 weeks gestation presenting for continued nausea and vomiting. Differential diagnoses considered include but not limited to Early , threatened ,ectopic , hemorrhagic cyst, Hyperemesis gravidarum PE: NAD. afebrile RRR Lungs CTA bilat Abd is soft and non tender No CVA tenderness US: IUP with heart tones noted. Trace free fluid Beta hCG appropriate. The patient is given fluids and antiemetics and feels better. She needs to fallow up with OB. ER precautions given Laboratory Tests Test 08/18/17 18:32 08/18/17 19:32 Urine Color Brown Urine Appearance Slightly cloudy Urine pH 5 (4.5-8.0) Urine Specific [place] 1.025 (1.005-1.035) Urine Protein 3+ (NEGATIVE) H Urine Glucose (UA) Negative (NEGATIVE) Urine Ketones 4+ (NEGATIVE) H Urine Occult Blood 5+ (NEGATIVE) H Urine Nitrite Negative (NEGATIVE) Urine Bilirubin 1+ (NEGATIVE) H Urine Ictotest Negative Urine Urobilinogen 8 MG/DL (0.0-1.0) H Urine Leukocyte Esterase 2+ (NEGATIVE) H Urine RBC 10-15 /HPF (0 - 2) H Urine WBC 5-10 /HPF (0 - 2) H Urine Squamous Epithelial Cells Few /LPF (NONE/OCC) Urine Bacteria Many /HPF (NONE) H White Blood Count 13.8 K/UL (4.8-10.8) H Red Blood Count 4.16 M/UL (4.20-5.40) L Hemoglobin 13.4 G/DL (12.0-16.0) Hematocrit 39.9 % (37.0-47.0) Mean Corpuscular Volume 96 FL (80-99) Mean Corpuscular Hemoglobin 32.1 PG (27.0-31.0) H Mean Corpuscular Hemoglobin Concent 33.5 G/DL (32.0-36.0) Red Cell Distribution Width 10.6 % (11.6-14.8) L Platelet Count 285 K/UL (150-450) Mean Platelet Volume 6.5 FL (6.5-10.1) Neutrophils (%) (Auto) 79.7 % (45.0-75.0) H Lymphocytes (%) (Auto) 13.5 % (20.0-45.0) L Monocytes (%) (Auto) 6.2 % (1.0-10.0) Eosinophils (%) (Auto) 0.1 % (0.0-3.0) Basophils (%) (Auto) 0.5 % (0.0-2.0) Prothrombin Time 10.5 SEC (9.30-11.50) Prothrombin Time INR 1.0 (0.9-1.1) PTT 25 SEC (23-33) Sodium Level 138 mEQ/L (135-145) Potassium Level 3.4 mEQ/L (3.4-4.9) Chloride Level 100 mEQ/L (98-107) Carbon Dioxide Level 19 mEQ/L (20-30) L Anion Gap 19 (5-15) H Blood Urea Nitrogen 8 mg/dL (7-23) Creatinine 0.5 mg/dL (0.5-0.9) Estimate Glomerular Filtration Rate > 60 mL/min (>60) Glucose Level 102 mg/dL (74-106) Calcium Level 9.9 mg/dL (8.6-10.2) Total Bilirubin 1.3 mg/dL (0.0-1.2) H Direct Bilirubin 0.4 mg/dL (0.1-0.3) H Aspartate Amino Transferase (AST) 29 U/L (5-40) Alanine Aminotransferase (ALT) 29 U/L (3-33) Alkaline Phosphatase 68 U/L (35-104) Total Protein 7.7 g/dL (6.6-8.7) Albumin 4.7 g/dL (3.5-5.2) Globulin 3.0 g/dL Albumin/Globulin Ratio 1.5 (1.0-2.7) Human Chorionic Gonadotropin, Quant 35462 mIU/mL Lab Results Impression CBC: Leukocytosis CMP: unremarkable Beta HCQ appropriate CT/MRI/US Diagnostic Results CT/MRI/US Diagnostic Results : Imaging Test Ordered: OB US Impression IUP with heart tones noted. Trace free fluid Last Vital Signs Date Time Temp Pulse Resp B/P (MAP) Pulse Ox O2 Delivery O2 Flow Rate FiO2 08/18/17 18:15 97.2 104 16 119/82 99 Room Air Status: improved Disposition: HOME, SELF-CARE Condition: Improved Scripts Vits W-Ca,Fe,Fa(<1MG) ( VITAMINS) 1 Each Tablet 1 EACH PO DAILY, #30 TAB Prov: LULU SUÁREZ 08/18/17 Ondansetron* (ZOFRAN*) 4 Mg Tablet 4 MG ORAL Q6H Y for Nausea & Vomiting, #15 TAB Prov: LULU SUÁREZ 08/18/17 Referrals: NON PHYSICIAN (PCP) Patient Instructions: Nausea and Vomiting, Adult, First Trimester of Additional Instructions: I discussed my findings with the patient. All questions and concerns have been answered. Treatment and medication compliance have been addressed. Return to ED if symptoms worsen, new symptoms arise, or if needed for any reason. Patient verbalized understanding of discharge instructions. The patient is to follow up with OB as soon as possible LULU SUÁREZ Aug 18, 2017 21:49
--- NOTE | 2017-08-19 09:22 | Diagnostic Imaging Report ---
Indication:Pelvic pain. . Comparison: None Technique: Grayscale and duplex Doppler imaging of the pelvis performed with transabdominal and endovaginal technique. Findings: Single living AP demonstrated dated 6 weeks 4 days by crown-rump length. Yolk sac identified. heart rate and motion noted. There is a trace amount of free fluid present. The ovaries are unremarkable. Impression: Single living IUP 6 weeks 4 days.
== END 2017-08-18 20:37 | disposition home or self-care (01) ==
LOC: EMR 18:50
DX: O26.891 Other specified pregnancy related conditions, first trimester (principal); Z3A.01 Less than 8 weeks gestation of pregnancy; R11.2 Nausea with vomiting, unspecified
CPT/HCPCS: 36415; 76801; 76830; 80053; 81003; 82248; 84702; 85025; 85610; 85730; 87086; 96361; 96374; 99284; J2405

== ENCOUNTER 2017-09-02 13:03 | Emergency (ER) | payer MEDICAID, OTHER ==
[~2017-09-02] VITALS: Ht 157.5 cm; Wt 48.1 kg
[~2017-09-02 13:03] MED LIST changes: +PRENATAL VITAM1 EACH PO; +ZOFRAN4 M3 ORAL
[2017-09-02] MEDS ORDERED: Metoclopramide 10mg/2ml Inj IM ONE (13:15)
--- NOTE | 2017-09-02 13:33 | Emergency Room Report ---
History of Present Illness General Chief Complaint: Nausea Source: Patient Present Illness HPI 21-year-old female presents to the emergency department complaining of vomiting 3 times times one day. Patient reports she is approximately 7 weeks was seen by her ARMATURE REPAIRER this morning who prescribed a new name been medication for nausea however it is not covered by her insurance and she has come to the ER for an alternative medication. Patient denies blood in the vomit. She states she is with one prior ectopic . Patient states she just had ultrasound imaging performed this morning which showed IUP at approximately 7 weeks and she is brought her results from her visit with her. She denies recent travel or ill contacts denies abdominal pain denies vaginal discharge, vaginal bleeding or cramping. Denies CP, Palpitations, LOC, AMS, dizziness, Changes in Vision, Sensation, paresthesias, or a sudden severe headache. Allergies: Coded Allergies: No Known Allergies (Unverified , 01/14/17) Patient History Past Medical History: see triage record Past Surgical History: none Pertinent Family History: none Now: Yes Reviewed Nursing Documentation: PMH: Agreed, PSxH: Agreed Nursing Documentation-PMH Past Medical History: No Stated History Review of Systems All Other Systems: negative except mentioned in HPI Physical Exam Vital Signs Date Time Temp Pulse Resp B/P (MAP) Pulse Ox O2 Delivery O2 Flow Rate FiO2 09/02/17 13:07 97.7 108 19 124/84 97 Room Air Sp02 EP Interpretation: reviewed, normal General Appearance: alert, GCS 15, non-toxic, mild distress Head: normocephalic, atraumatic Eyes: bilateral eye normal inspection, bilateral eye PERRL ENT: hearing grossly normal, normal voice Neck: full range of motion Respiratory: lungs clear, normal breath sounds, speaking full sentences Cardiovascular #1: regular rate, rhythm Gastrointestinal: normal bowel sounds, non tender, soft, no guarding, no rebound Rectal: deferred Genitourinary: normal inspection, no CVA tenderness Musculoskeletal: back normal, gait/station normal, normal range of motion, non- tender Neurologic: alert, oriented x3, responsive, motor strength/tone normal, sensory intact, normal gait, speech normal Psychiatric: judgement/insight normal Skin: normal color, no rash, warm/dry, well hydrated Medical Decision Making PA Attestation Dr. nielson is my supervising Physician whom patient management has been discussed with. Diagnostic Impression: Primary Impression: Nausea and vomiting in ER Course 21-year-old female presents to the emergency department complaining of vomiting 3 times times one day. Patient reports she is approximately 7 weeks was seen by her ARMATURE REPAIRER this morning who prescribed a new name been medication for nausea however it is not covered by her insurance and she has come to the ER for an alternative medication. Patient denies blood in the vomit. She states she is with one prior ectopic . Patient states she just had ultrasound imaging performed this morning which showed IUP at approximately 7 weeks and she is brought her results from her visit with her. She denies recent travel or ill contacts denies abdominal pain denies vaginal discharge, vaginal bleeding or cramping. Denies CP, Palpitations, LOC, AMS, dizziness, Changes in Vision, Sensation, paresthesias, or a sudden severe headache. Ddx considered but are not limited to GE, colitis, acute appy, SBO, Cyclical Vomiting secondary to THC, * Vital signs: pt. is afebrile, mildly tachycardic at 108 H&PE are most consistent with mild dehydration from related vomiting. ORDERS: -None required at this time, the dx is clinical. ED INTERVENTIONS: -1000 NS iv hydration, -Reglan IV -Pt. is able to tolerate oral fluids after interventions. She is no longer tachycardic after IV fluids. -d/w pt. that she will be treated conservatively with oral anti-emetic as an outpatient. instructed her to return promptly to the ED with worsening or new symptoms. DISCHARGE: At this time pt. is stable for d/c to home. Will provide printed patient care instructions, and any necessary prescriptions. Care plan and follow up instructions have been discussed with the patient prior to discharge. Last Vital Signs Date Time Temp Pulse Resp B/P (MAP) Pulse Ox O2 Delivery O2 Flow Rate FiO2 09/02/17 13:07 97.7 108 19 124/84 97 Room Air Disposition: HOME, SELF-CARE Condition: Stable Scripts Metoclopramide Hcl* (REGLAN*) 10 Mg Tablet 10 MG ORAL THREE TIMES A DAY Y for Nausea & Vomiting, #20 TAB Prov: Giselle Clark 09/02/17 Patient Instructions: Nausea and Vomiting, Adult Additional Instructions: Take medications as directed. Follow up with a Primary Care Provider in 3-5 days, even if your symptoms have resolved. --Please review list of primary care clinics, if you do not already have a primary care provider Return sooner to ED if new symptoms occur, or current symptoms become worse. - Please note that this Emergency Department Report was dictated using [employer] technology software, occasionally this can lead to erroneous entry secondary to interpretation by the dictation equipment. Giselle Clark Sep 02, 2017 13:33
[2017-09-02] MEDS ORDERED: Metoclopramide 10mg/2ml Inj IVP ONE (13:45)
[2017-09-02] MEDS ORDERED: REGLAN10 MG ORAL (14:34)
[2017-09-02 15:25] VITALS: BP 100/60
== END 2017-09-02 15:30 | disposition home or self-care (01) ==
LOC: EMR 13:41
DX: O21.9 Vomiting of pregnancy, unspecified (principal); Z3A.01 Less than 8 weeks gestation of pregnancy
CPT/HCPCS: 96374; 96375; 99284; J2765

== ENCOUNTER 2017-09-11 23:38 | Emergency (ER) | payer MEDICAID ==
[~2017-09-11] VITALS: Ht 157.5 cm; Wt 45.4 kg
[~2017-09-11 23:38] MED LIST changes: +REGLAN10 MG ORAL
[2017-09-11 23:54] VITALS: BP 122/72
--- NOTE | 2017-09-12 00:08 | Emergency Room Report ---
History of Present Illness General Chief Complaint: Vomiting Source: Patient Present Illness HPI Is a 21-year-old female who is 2 para 1 with one ectopic . She is approximately 10 weeks . She presents with chief complaint of vomiting. No couple episode. This has been a frequent occurrence with this . Vomiting with specks of blood. No diarrhea. Similar symptom in the past. No urinary complaint. Allergies: Coded Allergies: No Known Allergies (Unverified , 01/14/17) Patient History Past Medical History: see triage record, old chart reviewed Past Surgical History: other Pertinent Family History: none Social History: Denies: smoking Last Menstrual Period: 9 weeks Now: Yes Immunizations: other Reviewed Nursing Documentation: PMH: Agreed, PSxH: Agreed Nursing Documentation-PMH Past Medical History: No Stated History Review of Systems Eye: Denies: eye pain, blurred vision ENT: Denies: ear pain, nose congestion, throat swelling Respiratory: Denies: cough, shortness of breath Cardiovascular: Denies: chest pain, palpitations Gastrointestinal: Reports: nausea, vomiting, Denies: abdominal pain, diarrhea Musculoskeletal: Denies: back pain, joint pain Skin: Denies: rash Neurological: Denies: headache, numbness Endocrine: Denies: increased thirst, increased urine Hematologic/Lymphatic: Denies: easy bruising All Other Systems: negative except mentioned in HPI Physical Exam Vital Signs Date Time Temp Pulse Resp B/P (MAP) Pulse Ox O2 Delivery O2 Flow Rate FiO2 09/11/17 23:50 98.2 126 28 130/84 100 Room Air vitals with tachycardia Sp02 EP Interpretation: reviewed, normal General Appearance: well appearing, no apparent distress, alert Head: normocephalic, atraumatic Eyes: bilateral eye PERRL, bilateral eye EOMI ENT: hearing grossly normal, normal pharynx Neck: full range of motion, supple, no meningismus Respiratory: chest non-tender, lungs clear, normal breath sounds Cardiovascular #1: regular rate, rhythm, no murmur Gastrointestinal: normal bowel sounds, non tender, no mass, no organomegaly, no bruit, non-distended Musculoskeletal: back normal, gait/station normal, normal range of motion Neurologic: alert, oriented x3 Psychiatric: mood/affect normal Skin: warm/dry Medical Decision Making Diagnostic Impression: Primary Impression: Hyperemesis gravidarum with electrolyte imbalance Additional Impression: Hypokalemia ER Course Patient with hyperemesis gravidarum. From the vomiting patient has low potassium. She felt better now after IV hydration and Zofran. Able to take the potassium without any difficulty. My bedside ultrasound showed a live IUP with a heartbeat of 140s. Good movement. No evidence of ectopic. No evidence of obstruction. Lab Results Impression labs with hypokalemia Last Vital Signs Date Time Temp Pulse Resp B/P (MAP) Pulse Ox O2 Delivery O2 Flow Rate FiO2 09/11/17 23:50 98.2 126 28 130/84 100 Room Air Status: improved Disposition: HOME, SELF-CARE Condition: Stable Scripts Ondansetron (Zofran) 4 Mg Tablet 4 MG ORAL Q6H Y for Nausea & Vomiting, #30 TAB 0 Refills Prov: LILLY CARMEN M.D. 09/12/17 Referrals: NON PHYSICIAN (PCP) Additional Instructions: Eat small frequent meals. Increase fluids. Followup with your Dr. in 2-3 days. Return if worse. May take [id number] vitamins. LILLY CARMEN M.D. Sep 12, 2017 00:08
[2017-09-12] MEDS: D5NS 1,000 ML IV SCH ×3 (00:30→02:15)
[2017-09-12 00:38] LABS: APPEARANCE,URINE CLEAR; BASOPHILS % (AUTO) 0.7 % (0.0-2.0); BILIRUBIN, URINE NEGATIVE (NEGATIVE); EOSINOPHILS % (AUTO) 0.1 % (0.0-3.0); GLUCOSE, URINE (UA) NEGATIVE (NEGATIVE); HEMATOCRIT 35.9 % (37.0-47.0); HEMOGLOBIN 12.7 G/DL (12.0-16.0); KETONES,URINE 4+ (NEGATIVE); LEUKOCYTE ESTERASE ,URINE 1+ (NEGATIVE); LYMPHOCYTES % (AUTO) 23.5 % (20.0-45.0); MEAN CORPUSCULAR VOLUME 95 FL (80-99); MONOCYTES % (AUTO) 5.8 % (1.0-10.0); NEUTROPHILS % (AUTO) 69.9 % (45.0-75.0); NITRITE,URINE NEGATIVE (NEGATIVE); PH,URINE 5 (4.5-8.0); PLATELET COUNT 237 K/UL (150-450); PROTEIN,URINE 2+ (NEGATIVE); RED CELL DISTRIBUTION WIDTH 10.7 % (11.6-14.8); UROBILINOGEN,URINE 4 MG/DL (0.0-1.0)
[2017-09-12 00:39] LABS: COLOR,URINE YELLOW
[2017-09-12 00:49] LABS: ANION GAP 13 mmol/L (5-15); BLOOD UREA NITROGEN 6 mg/dL (7-18); CALCIUM 8.5 MG/DL (8.5-10.1); CARBON DIOXIDE 21 MMOL/L (21-32); CHLORIDE 106 MMOL/L (98-107); CREATININE 0.4 MG/DL (0.55-1.30); SODIUM 141 MMOL/L (136-145)
[2017-09-12 00:51] LABS: POTASSIUM 2.7 MMOL/L (3.5-5.1)
[2017-09-12 01:05] VITALS: BP 116/74
[2017-09-12] MEDS ORDERED: ZOFRAN4 MG ORAL (01:52)
[2017-09-12 02:15] VITALS: BP 116/74
== END 2017-09-12 02:15 | disposition home or self-care (01) ==
LOC: EMR 23:59
DX: O21.1 Hyperemesis gravidarum with metabolic disturbance (principal); Z3A.10 10 weeks gestation of pregnancy
CPT/HCPCS: 36415; 80048; 81001; 85025; 96361; 96374; 99284; J2405; J8499

== ENCOUNTER 2018-02-13 02:42 | Emergency (ER) | payer MEDICAID, OTHER ==
[~2018-02-13] VITALS: Ht 157.5 cm; Wt 63.5 kg
[~2018-02-13 02:42] MED LIST changes: +ZOFRAN4 MG ORAL
[2018-02-13] MEDS ORDERED: VITAMINS (02:48)
[2018-02-13 02:50] VITALS: BP 113/76
[2018-02-13] MEDS ORDERED: Norco 5mg/325mg tab ORAL ONE (03:00)
[2018-02-13] MEDS ORDERED: AMOXICILLIN500 MG ORAL (03:01)
[2018-02-13] MEDS ORDERED: PSEUDOEPHEDRINE60 MG PO (03:01)
--- NOTE | 2018-02-13 03:02 | Emergency Room Report ---
History of Present Illness General Chief Complaint: Earache Source: Patient Present Illness [facility] This is a 22-year-old female who is 31 weeks . She presents with chief complaint right ear pain. She has a cough and congestion and runny nose for the last 3-4 days. Pain started yesterday and worsen tonight. Worse with coughing. No fever chills. Pain localized to the right ear. Pain is 9 out of 10. No Drainage. No vaginal bleeding or abdominal pain. Allergies: Coded Allergies: No Known Allergies (Unverified , 01/14/17) Patient History Past Medical History: see triage record, old chart reviewed Past Surgical History: none Pertinent Family History: none Social History: Denies: smoking Last Menstrual Period: Jun Now: Yes Immunizations: other Reviewed Nursing Documentation: PMH: Agreed; PSxH: Agreed Nursing Documentation-PMH Past Medical History: No Stated History Review of Systems Eye: Denies: eye pain, blurred vision ENT: Reports: ear pain, nose congestion; Denies: throat swelling Respiratory: Denies: cough, shortness of breath Cardiovascular: Denies: chest pain, palpitations Gastrointestinal: Denies: abdominal pain, diarrhea, nausea, vomiting Musculoskeletal: Denies: back pain, joint pain Skin: Denies: rash Neurological: Denies: headache, numbness Endocrine: Denies: increased thirst, increased urine Hematologic/Lymphatic: Denies: easy bruising All Other Systems: negative except mentioned in HPI Physical Exam Vital Signs Date Time Temp Pulse Resp B/P (MAP) Pulse Ox O2 Delivery O2 Flow Rate FiO2 02/13/18 02:43 98.0 98 16 113/76 Room Air 98.1 02/13/18 02:50 98 vitals normal Sp02 EP Interpretation: reviewed, normal General Appearance: well appearing, no apparent distress, alert Head: normocephalic, atraumatic Eyes: bilateral eye PERRL, bilateral eye EOMI ENT: hearing grossly normal, normal pharynx, other - right TM is bulging and red Neck: full range of motion, supple, no meningismus Respiratory: chest non-tender, lungs clear, normal breath sounds Cardiovascular #1: regular rate, rhythm, no murmur Gastrointestinal: normal bowel sounds, non tender, no mass, no organomegaly, no bruit, non-distended Musculoskeletal: back normal, gait/station normal, normal range of motion Psychiatric: mood/affect normal Skin: warm/dry Medical Decision Making Diagnostic Impression: Primary Impression: Viral upper respiratory infection Additional Impression: Otitis media of right ear Qualified Codes: H66.001 - Acute suppurative otitis media without spontaneous rupture of ear drum, right ear ER Course Patient with a viral illness, located by otitis media. No evidence of perforation, meningitis, sepsis, pneumonia or other serious bacterial infection. Last Vital Signs Date Time Temp Pulse Resp B/P (MAP) Pulse Ox O2 Delivery O2 Flow Rate FiO2 02/13/18 02:50 98.1 98 16 113/76 98 Room Air 98.1 Status: improved Disposition: HOME, SELF-CARE Condition: Stable Scripts Pseudoephedrine Hcl* (SUDAFED*) 60 Mg Tablet 60 MG PO Q6H, #30 TAB Prov: LILLY CARMEN M.D. 02/13/18 Amoxicillin* (AMOXIL*) 500 Mg Capsule 500 MG ORAL THREE TIMES A DAY, #21 CAP Prov: LILLY CARMEN M.D. 02/13/18 Patient Instructions: Otitis Media, Adult, [id number] Additional Instructions: Follow-up with your DrJoanie in 5-7 days if not better. Return if symptom worsen. LILLY CARMEN M.D. Feb 13, 2018 03:02
[2018-02-13 03:08] VITALS: BP 113/76
== END 2018-02-13 03:08 | disposition home or self-care (01) ==
LOC: EMR 03:04
DX: O99.513 Diseases of the respiratory system complicating pregnancy, third trimester (principal); Z3A.31 31 weeks gestation of pregnancy; J06.9 Acute upper respiratory infection, unspecified; B34.9 Viral infection, unspecified; H66.91 Otitis media, unspecified, right ear
CPT/HCPCS: 99284

== ENCOUNTER 2018-07-27 20:14 | Emergency (ER) | payer OTHER ==
[~2018-07-27] VITALS: Ht 157.5 cm; Wt 63.5 kg
[~2018-07-27 20:14] MED LIST changes: +AMOXICILLIN500 MG ORAL; +PSEUDOEPHEDRINE60 MG PO; +VITAMINS
[2018-07-27] MEDS ORDERED: PSEUDOEPHEDRINE60 MG PO (21:07)
[2018-07-27] MEDS ORDERED: ZITHROMAX250 MG ORAL (21:07)
--- NOTE | 2018-07-27 21:07 | Emergency Room Report ---
History of Present Illness General Chief Complaint: Upper Respiratory Illness Source: Patient Present Illness HPI Is a 22-year-old female with no medical problem. She presents with chief complaint of cough congestion, fever. Onset last night. Her boyfriend is here for the same thing. Coworker sick. Congested. Cough is nonproductive in nature. No nausea no vomiting. Body pain. Nothing made it better. Nothing made it worse. No other complaint. She is 3 months but bottle feeding. Allergies: Coded Allergies: No Known Allergies (Unverified , 01/14/17) Patient History Past Medical History: see triage record, old chart reviewed Past Surgical History: none Pertinent Family History: none Social History: Denies: smoking Last Menstrual Period: 07/04/18 Now: No Immunizations: other Reviewed Nursing Documentation: PMH: Agreed; PSxH: Agreed Nursing Documentation-PMH Past Medical History: No Stated History Review of Systems Eye: Denies: eye pain, blurred vision ENT: Reports: nose congestion; Denies: ear pain, throat swelling Respiratory: Reports: cough; Denies: shortness of breath Cardiovascular: Denies: chest pain, palpitations Gastrointestinal: Denies: abdominal pain, diarrhea, nausea, vomiting Musculoskeletal: Denies: back pain, joint pain Skin: Denies: rash Neurological: Denies: headache, numbness Endocrine: Denies: increased thirst, increased urine Hematologic/Lymphatic: Denies: easy bruising All Other Systems: negative except mentioned in HPI Physical Exam Vital Signs Date Time Temp Pulse Resp B/P (MAP) Pulse Ox O2 Delivery O2 Flow Rate FiO2 07/27/18 20:28 98.3 99 19 110/75 95 Room Air 98.2 vitals normal Sp02 EP Interpretation: reviewed, normal General Appearance: well appearing, no apparent distress, alert Head: normocephalic, atraumatic Eyes: bilateral eye PERRL, bilateral eye EOMI ENT: hearing grossly normal, normal pharynx, other - Right TM is erythematous. Bilateral TMs with fluids Neck: full range of motion, supple, no meningismus Respiratory: chest non-tender, lungs clear, normal breath sounds Cardiovascular #1: regular rate, rhythm, no murmur Gastrointestinal: normal bowel sounds, non tender, no mass, no organomegaly, no bruit, non-distended Musculoskeletal: back normal, gait/station normal, normal range of motion Psychiatric: mood/affect normal Skin: warm/dry Medical Decision Making Diagnostic Impression: Primary Impression: Upper respiratory infection Qualified Codes: J06.9 - Acute upper respiratory infection, unspecified Additional Impression: Right otitis media with effusion ER Course Patient with a viral illness complicated by otitis media. No evidence of any sepsis, pneumonia, acute abdomen or other serious bacterial infection. Last Vital Signs Date Time Temp Pulse Resp B/P (MAP) Pulse Ox O2 Delivery O2 Flow Rate FiO2 07/27/18 20:28 98.3 99 19 110/75 95 Room Air 98.2 Status: unchanged Disposition: HOME, SELF-CARE Condition: Stable Scripts Azithromycin* (ZITHROMAX*) 250 Mg Tablet 250 MG ORAL DAILY, #6 TAB 0 Refills Take two tables once daily for 1 day, then one tablet once daily for 4 days. Prov: LILLY CARMEN M.D. 07/27/18 Pseudoephedrine Hcl* (SUDAFED*) 60 Mg Tablet 60 MG PO Q6H, #30 TAB Prov: LILLY CARMEN M.D. 07/27/18 Patient Instructions: Upper Respiratory Infection, Adult Additional Instructions: Increase fluids. Follow-up with your doctor in 7 days. Return if worse. LILLY CARMEN M.D. Jul 27, 2018 21:07
[2018-07-27 21:16] VITALS: BP 110/75
== END 2018-07-27 21:16 | disposition home or self-care (01) ==
LOC: EMR 21:00
DX: J06.9 Acute upper respiratory infection, unspecified (principal); H65.91 Unspecified nonsuppurative otitis media, right ear
CPT/HCPCS: 99283

== ENCOUNTER 2019-02-12 17:10 | Emergency (ER) | payer OTHER ==
[~2019-02-12] VITALS: Ht 157.5 cm; Wt 49.9 kg
[~2019-02-12 17:10] MED LIST changes: +ZITHROMAX250 MG ORAL
[2019-02-12] MEDS ORDERED: NKM (17:22)
--- NOTE | 2019-02-12 17:25 | NUR ---
ED Nurse Note: Patient walked into ED c/o cough for the past 2 weeks, patient reportts a 10/10 pain in her throat. patient is alert and oriented x4, ambulatory with a steady gait, VSS
[2019-02-12 17:28] VITALS: BP 122/79
--- NOTE | 2019-02-12 17:38 | Emergency Room Report ---
History of Present Illness General Chief Complaint: Flu Like Symptoms Source: Patient Present Illness HPI 23-year-old female patient presents the ER complaining of cough and sore throat. Reports cough is been present for the past 2 weeks. Reports cough with sputum, denies process. Denies chest pain or shortness of breath. Denies recent travel outside the country. Denies drinking or drug use. Denies smoking cigarettes or marijuana. Also complains of sore throat for the past 2 days. Reports feeling lethargic and fatigued secondary to cough, states that the cough keeps her up at night. Denies fever. Reports sick contacts at home with similar symptoms. Reports is taking NyQuil with mild relief of symptoms. Denies other aggravating or relieving factors. Allergies: Coded Allergies: No Known Allergies (Unverified , 01/14/17) Patient History Past Medical History: see triage record Last Menstrual Period: 01/16/19 Now: No : 2 Reviewed Nursing Documentation: PMH: Agreed; PSxH: Agreed Nursing Documentation-PMH Past Medical History: No Stated History Review of Systems All Other Systems: negative except mentioned in HPI Physical Exam Vital Signs Date Time Temp Pulse Resp B/P (MAP) Pulse Ox O2 Delivery O2 Flow Rate FiO2 02/12/19 17:19 98.8 104 19 122/79 100 Room Air Sp02 EP Interpretation: reviewed, normal General Appearance: well appearing, no apparent distress, alert, GCS 15, non- toxic Head: normocephalic, atraumatic Eyes: bilateral eye normal inspection, bilateral eye PERRL ENT: hearing grossly normal, normal pharynx, no angioedema, normal voice, TMs + canals normal, uvula midline, moist mucus membranes, pharyngeal erythema, other - No tonsillar exudates Neck: full range of motion, no meningismus, no bony tend Respiratory: lungs clear, normal breath sounds, no rhonchi, no respiratory distress, no accessory muscle use, no wheezing, speaking full sentences Cardiovascular #1: regular rate, rhythm, no edema Musculoskeletal: back normal, digits/nails normal, gait/station normal, normal range of motion, non-tender Neurologic: alert, oriented x3, responsive, motor strength/tone normal, sensory intact Psychiatric: mood/affect normal Skin: no rash Medical Decision Making PA Attestation Dr. Castro is my supervising Physician whom patient management has been discussed with. Diagnostic Impression: Primary Impression: Atypical pneumonia Additional Impression: Sore throat ER Course Pt presents to ED c/o cough times 2 weeks and sore throat for 2 days. DDX considered but are not limited to influenza, viral URI, pneumonia, strep throat, rhinitis, sinusitis, otitis media, otitis externa. VITAL SIGNS are WNL, patient is afebrile. ER COURSE: Provided with medication in the ER. Lungs clear to auscultation, no wheezes, rhonci or rales. patient afebrile. CXR negative for acute disease. However due to duration of symptoms will provide patient with antibiotics to cover for atypical pneumonia. no tonsillar exudates,history of cough, no fever, no stridor, uvula midline, low suspicion for peritonsillar abscess or pharyngitis. Sore throat likely secondary to cough. Likely viral etiology of symptoms. Symptomatic treatment. drink plenty of fluids. Salt water gargles for sore throat. Followup with PCP for further treatment and/or referral as needed. ER precautions given. DISCHARGE: At this time pt is stable for d/c to home. Patient is resting comfortably, in no acute distress, nontoxic appearing. Patient to take medications as instructed Will provide with patient care instructions and any necessary prescriptions. Care plan and follow-up instructions provided. Patient instructed to follow-up with primary care provider in 3 - 5 days. Patient questions asked and answered. Patient reports understanding and agreement to treatment plan. ER precautions given. Patient instructed to return to ER immediately for any new or worsening of symptoms including but not limited to increasing SOB, persistent fever, intractable vomiting. - Please note that this Emergency Department Report was dictated using [employer] operator technology software, occasionally this can lead to erroneous entry secondary to interpretation by the dictation equipment. Chest X-Ray Diagnostic Results Chest X-Ray Diagnostic Results : Chest X-Ray Ordered: Yes # of Views/Limited/Complete: 1 View Indication: Chest Pain EP Interpretation: Yes JUJU Xray: Interpretation reviewed, by supervising MD, and agrees with findings. Interpretation: no consolidation, no effusion, no pneumothorax, no acute cardiopulmonary disease Impression: No acute disease JUJU ScribShukri Serna PA-C Last Vital Signs Date Time Temp Pulse Resp B/P (MAP) Pulse Ox O2 Delivery O2 Flow Rate FiO2 02/12/19 17:28 95 19 Room Air 02/12/19 17:28 98.8 122/79 100 Status: improved Disposition: HOME, SELF-CARE Condition: Stable Scripts Azithromycin* (ZITHROMAX*) 250 Mg Tablet 250 MG ORAL DAILY, #6 TAB 0 Refills Take two tables once daily for 1 day, then one tablet once daily for 4 days. Prov: Laith Serna 02/12/19 Acetaminophen* (TYLENOL EXTRA STRENGTH*) 500 Mg Tablet 500 MG ORAL Q8H PRN for Prn Headache/Temp > 101, #30 TAB 0 Refills Prov: Laith Serna 02/12/19 Benzonatate* (TESSALON PERLE*) 100 Mg Capsule 100 MG ORAL THREE TIMES A DAY, #30 PERLE Prov: Laith Serna 02/12/19 Patient Instructions: Community-Acquired Pneumonia, Adult, [id number] Additional Instructions: Followup with primary care provider in 3 -5 days. Salt water gargles Take Tylenol for pain and fever symptoms Drink plenty of water. Take medications as directed. Patient questions asked and answered. ER precautions given, patient instructed to return to ER immediately for any new or worsening of symptoms including but not limited to intractable vomiting, difficulty breathing, inability to eat. Laith Serna Feb 12, 2019 17:38
[2019-02-12] MEDS ORDERED: Lidocaine 2% Visc 15ml soln ORAL ONE (17:45)
[2019-02-12] MEDS ORDERED: Benzonatate 100mg Perles ORAL ONE (17:45)
--- NOTE | 2019-02-12 18:02 | NUR ---
ED Nurse Note: pt given po meds for pain. relates she is having productive cough of green sputum.
[2019-02-12] MEDS ORDERED: ZITHROMAX250 MG ORAL (18:13)
[2019-02-12] MEDS ORDERED: TYLENOL EXTRA500 MG ORAL (18:13)
[2019-02-12] MEDS ORDERED: TESSALON PERLE100 MG ORAL (18:13)
[2019-02-12 18:22] VITALS: BP 125/73
--- NOTE | 2019-02-12 18:23 | NUR ---
ER DISCHARGE NOTE: Patient is cleared to be discharged per ERMD, pt is aox4, on room air, with stable vital signs. pt was given dc and prescription instructions, pt was able to verbalize understanding, pt id band removed without complications. pt is able to ambulate with steady gait. pt took all belongings.
--- NOTE | 2019-02-13 10:16 | Diagnostic Imaging Report ---
Indication: Cough Technique: One view of the chest Comparison: none Findings: Lungs and pleural spaces are clear. Heart size is normal Impression: No acute process
== END 2019-02-12 18:24 | disposition home or self-care (01) ==
LOC: EMR 18:03
DX: J18.9 Pneumonia, unspecified organism (principal); J02.9 Acute pharyngitis, unspecified
CPT/HCPCS: 71045; 99283

== ENCOUNTER 2019-08-02 08:30 | Emergency (ER) | payer OTHER ==
[~2019-08-02] VITALS: Ht 157.5 cm; Wt 46.3 kg
[~2019-08-02 08:30] MED LIST changes: +TESSALON PERLE100 MG ORAL; +TYLENOL EXTRA500 MG ORAL
--- NOTE | 2019-08-02 09:00 | NUR ---
ED Nurse Note:pt. came with c/o lower abdominal pain and nausea vomiting, pt. is A/Ox4 ambulatory with steady gait, VSS, blood and urine sent to labs, given IV meds and fluids
[2019-08-02 09:11] VITALS: BP 126/89
[2019-08-02 09:14] LABS: BASOPHILS % (AUTO) 0.9 % (0.0-2.0); EOSINOPHILS % (AUTO) 0.1 % (0.0-3.0); HEMATOCRIT 43.8 % (37.0-47.0); HEMOGLOBIN 14.9 G/DL (12.0-16.0); LYMPHOCYTES % (AUTO) 18.7 % (20.0-45.0); MEAN CORPUSCULAR VOLUME 96 FL (80-99); MONOCYTES % (AUTO) 5.3 % (1.0-10.0); PLATELET COUNT 295 K/UL (150-450); RED BLOOD COUNT 4.56 M/UL (4.20-5.40); RED CELL DISTRIBUTION WIDTH 10.8 % (11.6-14.8); WHITE BLOOD COUNT 13.1 K/UL (4.8-10.8)
[2019-08-02 09:16] LABS: APPEARANCE,URINE CLEAR; BILIRUBIN, URINE NEGATIVE (NEGATIVE); GLUCOSE, URINE (UA) NEGATIVE (NEGATIVE); KETONES,URINE 4+ (NEGATIVE); LEUKOCYTE ESTERASE ,URINE 1+ (NEGATIVE); NITRITE,URINE NEGATIVE (NEGATIVE); PH,URINE 8 (4.5-8.0); PROTEIN,URINE 1+ (NEGATIVE); UROBILINOGEN,URINE NORMAL MG/DL (0.0-1.0)
[2019-08-02 09:19] LABS: COLOR,URINE YELLOW
[2019-08-02 09:28] LABS: ANION GAP 12 mmol/L (5-15); BLOOD UREA NITROGEN 5 mg/dL (7-18); CALCIUM 9.8 MG/DL (8.5-10.1); CARBON DIOXIDE 23 MMOL/L (21-32); CHLORIDE 102 MMOL/L (98-107); CREATININE 0.5 MG/DL (0.55-1.30); POTASSIUM 3.7 MMOL/L (3.5-5.1); SODIUM 137 MMOL/L (136-145)
[2019-08-02 09:38] LABS: ALANINE AMINOTRANSFERASE 30 U/L (12-78); ALBUMIN 4.4 G/DL (3.4-5.0); ALBUMIN/GLOBULIN RATIO 1.2 (1.0-2.7); ALKALINE PHOSPHATASE 71 U/L (46-116); ASPARTATE AMINO TRANSFERASE 21 U/L (15-37)
--- NOTE | 2019-08-02 09:47 | Emergency Room Report ---
History of Present Illness General Chief Complaint: Vomiting Source: Patient Present Illness HPI Patient states that intermittently over the past 3 weeks she has had a stabbing pain in her pelvic region. She states that about 3 weeks ago she thought she was getting her menses, however, it did not happen. She states that intermittently she continues to get sharp stabbing pains in her pelvis that are sudden in onset. She does not have constant pain. She denies abnormal vaginal discharge. She has had some dysuria. She denies fever or chills. She states she has had nausea and vomiting that started 2 days ago. She denies headache or neck pain. She denies chest pain or shortness of breath. She is . She states she could possibly be now which would make her G4, P1 EAB 1, ectopic 1. She has no other complaints. Allergies: Coded Allergies: No Known Allergies (Unverified , 01/14/17) Patient History Past Medical History: see triage record Past Surgical History: other - laproscopy for ectopic 2016 Social History: Denies: smoking, alcohol use, drug use Last Menstrual Period: 06/14/2019 Reviewed Nursing Documentation: PMH: Agreed; PSxH: Agreed Nursing Documentation-PMH Past Medical History: No History, Except For Review of Systems All Other Systems: negative except mentioned in HPI Physical Exam Vital Signs Date Time Temp Pulse Resp B/P (MAP) Pulse Ox O2 Delivery O2 Flow Rate FiO2 08/02/19 08:35 98.4 102 20 126/89 (101) 97 Room Air Sp02 EP Interpretation: reviewed, normal General Appearance: no apparent distress, alert, GCS 15, non-toxic Head: normocephalic, atraumatic Eyes: bilateral eye normal inspection, bilateral eye PERRL ENT: hearing grossly normal, normal pharynx, no angioedema, normal voice Neck: full range of motion, supple/symm/no masses Respiratory: chest non-tender, lungs clear, normal breath sounds, no respiratory distress, no retraction, no accessory muscle use, speaking full sentences Cardiovascular #1: regular rate, rhythm, no edema Gastrointestinal: normal bowel sounds, soft, non-distended, no guarding, no rebound, tenderness - mild TTP diffuesly in the suprapubic area Rectal: deferred Musculoskeletal: back normal, gait/station normal, normal range of motion, non- tender Neurologic: alert, oriented x3, responsive, motor strength/tone normal, sensory intact, speech normal Psychiatric: judgement/insight normal, memory normal, mood/affect normal, no suicidal/homicidal ideation Skin: no rash, normal color Medical Decision Making Diagnostic Impression: Primary Impression: Nausea and vomiting during prior to 22 weeks gestation Additional Impression: First trimester ER Course This patient has nausea and vomiting of . She is 6 weeks with an intrauterine identified on ultrasound. This was also identified with heart tones. The patient did request Zofran to have at home. She states she had this in her previous . I did educate the patient on the black box warning associated with this medication. She indicated understanding. I also told her that she could also use reyna or lemon and other natural options. I educated the patient to obtain vitamins with iron and to stop using marijuana. At this time, I did not identify an emergency medical condition. The patient is given close return precautions and follow-up instructions. Laboratory Tests Test 08/02/19 09:00 White Blood Count 13.1 K/UL (4.8-10.8) H Red Blood Count 4.56 M/UL (4.20-5.40) Hemoglobin 14.9 G/DL (12.0-16.0) Hematocrit 43.8 % (37.0-47.0) Mean Corpuscular Volume 96 FL (80-99) Mean Corpuscular Hemoglobin 32.8 PG (27.0-31.0) H Mean Corpuscular Hemoglobin Concent 34.1 G/DL (32.0-36.0) Red Cell Distribution Width 10.8 % (11.6-14.8) L Platelet Count 295 K/UL (150-450) Mean Platelet Volume 7.0 FL (6.5-10.1) Neutrophils (%) (Auto) 75.0 % (45.0-75.0) Lymphocytes (%) (Auto) 18.7 % (20.0-45.0) L Monocytes (%) (Auto) 5.3 % (1.0-10.0) Eosinophils (%) (Auto) 0.1 % (0.0-3.0) Basophils (%) (Auto) 0.9 % (0.0-2.0) Urine Color Yellow Urine Appearance Clear Urine pH 8 (4.5-8.0) Urine Specific [place] 1.015 (1.005-1.035) Urine Protein 1+ (NEGATIVE) H Urine Glucose (UA) Negative (NEGATIVE) Urine Ketones 4+ (NEGATIVE) H Urine Blood 4+ (NEGATIVE) H Urine Nitrite Negative (NEGATIVE) Urine Bilirubin Negative (NEGATIVE) Urine Urobilinogen Normal MG/DL (0.0-1.0) Urine Leukocyte Esterase 1+ (NEGATIVE) H Urine RBC 5-10 /HPF (0 - 2) H Urine WBC 0-2 /HPF (0 - 2) Urine Squamous Epithelial Cells Few /LPF (NONE/OCC) Urine Amorphous Sediment Few /LPF (NONE) H Urine Bacteria Few /HPF (NONE) Urine Mucus Few /LPF (NONE/OCC) H Urine HCG, Qualitative Positive (NEGATIVE) Sodium Level 137 MMOL/L (136-145) Potassium Level 3.7 MMOL/L (3.5-5.1) Chloride Level 102 MMOL/L (98-107) Carbon Dioxide Level 23 MMOL/L (21-32) Anion Gap 12 mmol/L (5-15) Blood Urea Nitrogen 5 mg/dL (7-18) L Creatinine 0.5 MG/DL (0.55-1.30) L Estimate Glomerular Filtration Rate > 60 mL/min (>60) Glucose Level 100 MG/DL (74-106) Calcium Level 9.8 MG/DL (8.5-10.1) Total Bilirubin 1.0 MG/DL (0.2-1.0) Aspartate Amino Transferase (AST) 21 U/L (15-37) Alanine Aminotransferase (ALT) 30 U/L (12-78) Alkaline Phosphatase 71 U/L (46-116) Total Protein 8.1 G/DL (6.4-8.2) Albumin 4.4 G/DL (3.4-5.0) Globulin 3.7 g/dL Albumin/Globulin Ratio 1.2 (1.0-2.7) Human Chorionic Gonadotropin, Quant 31109 mIU/mL (1-6) H Urine Opiates Screen Negative (NEGATIVE) Urine Barbiturates Screen Negative (NEGATIVE) Phencyclidine (PCP) Screen Negative (NEGATIVE) Urine Amphetamines Screen Negative (NEGATIVE) Urine Benzodiazepines Screen Negative (NEGATIVE) Urine Cocaine Screen Negative (NEGATIVE) Urine Marijuana (THC) Screen Positive (NEGATIVE) H Chlamydia trachomatis RNA Pending Neisseria gonorrhoeae RNA Pending Laboratory Tests Test 08/02/19 09:00 White Blood Count 13.1 K/UL (4.8-10.8) H Red Blood Count 4.56 M/UL (4.20-5.40) Hemoglobin 14.9 G/DL (12.0-16.0) Hematocrit 43.8 % (37.0-47.0) Mean Corpuscular Volume 96 FL (80-99) Mean Corpuscular Hemoglobin 32.8 PG (27.0-31.0) H Mean Corpuscular Hemoglobin Concent 34.1 G/DL (32.0-36.0) Red Cell Distribution Width 10.8 % (11.6-14.8) L Platelet Count 295 K/UL (150-450) Mean Platelet Volume 7.0 FL (6.5-10.1) Neutrophils (%) (Auto) 75.0 % (45.0-75.0) Lymphocytes (%) (Auto) 18.7 % (20.0-45.0) L Monocytes (%) (Auto) 5.3 % (1.0-10.0) Eosinophils (%) (Auto) 0.1 % (0.0-3.0) Basophils (%) (Auto) 0.9 % (0.0-2.0) Urine Color Yellow Urine Appearance Clear Urine pH 8 (4.5-8.0) Urine Specific [place] 1.015 (1.005-1.035) Urine Protein 1+ (NEGATIVE) H Urine Glucose (UA) Negative (NEGATIVE) Urine Ketones 4+ (NEGATIVE) H Urine Blood 4+ (NEGATIVE) H Urine Nitrite Negative (NEGATIVE) Urine Bilirubin Negative (NEGATIVE) Urine Urobilinogen Normal MG/DL (0.0-1.0) Urine Leukocyte Esterase 1+ (NEGATIVE) H Urine RBC 5-10 /HPF (0 - 2) H Urine WBC 0-2 /HPF (0 - 2) Urine Squamous Epithelial Cells Few /LPF (NONE/OCC) Urine Amorphous Sediment Few /LPF (NONE) H Urine Bacteria Few /HPF (NONE) Urine Mucus Few /LPF (NONE/OCC) H Urine HCG, Qualitative Positive (NEGATIVE) Sodium Level 137 MMOL/L (136-145) Potassium Level 3.7 MMOL/L (3.5-5.1) Chloride Level 102 MMOL/L (98-107) Carbon Dioxide Level 23 MMOL/L (21-32) Anion Gap 12 mmol/L (5-15) Blood Urea Nitrogen 5 mg/dL (7-18) L Creatinine 0.5 MG/DL (0.55-1.30) L Estimate Glomerular Filtration Rate > 60 mL/min (>60) Glucose Level 100 MG/DL (74-106) Calcium Level 9.8 MG/DL (8.5-10.1) Total Bilirubin 1.0 MG/DL (0.2-1.0) Aspartate Amino Transferase (AST) 21 U/L (15-37) Alanine Aminotransferase (ALT) 30 U/L (12-78) Alkaline Phosphatase 71 U/L (46-116) Total Protein 8.1 G/DL (6.4-8.2) Albumin 4.4 G/DL (3.4-5.0) Globulin 3.7 g/dL Albumin/Globulin Ratio 1.2 (1.0-2.7) Human Chorionic Gonadotropin, Quant Pending Urine Opiates Screen Pending Urine Barbiturates Screen Pending Phencyclidine (PCP) Screen Pending Urine Amphetamines Screen Pending Urine Benzodiazepines Screen Pending Urine Cocaine Screen Pending Urine Marijuana (THC) Screen Pending Chlamydia trachomatis RNA Pending Neisseria gonorrhoeae RNA Pending CT/MRI/US Diagnostic Results CT/MRI/US Diagnostic Results : Imaging Test Ordered: Pelvic US Impression +6week IUP w/ FHT 120's Last Vital Signs Date Time Temp Pulse Resp B/P (MAP) Pulse Ox O2 Delivery O2 Flow Rate FiO2 08/02/19 09:11 98.4 98 18 126/89 97 Room Air Status: improved Disposition: HOME, SELF-CARE Condition: Improved Referrals: NON PHYSICIAN (PCP) Cheyanne Castro DO Aug 02, 2019 09:47
--- NOTE | 2019-08-02 10:18 | NUR ---
ED Nurse Note:pt. went to [facility],
--- NOTE | 2019-08-02 11:15 | NUR ---
ED Nurse Note:pt. is back from [facility],
[2019-08-02 12:07] VITALS: BP 125/89
[2019-08-02] MEDS ORDERED: ONDANSETRON ODT4 MG BC (12:21)
[2019-08-02 12:43] VITALS: BP 125/89
--- NOTE | 2019-08-02 12:45 | NUR ---
ER DISCHARGE NOTE: Patient is cleared to be discharged per ERMD, pt is aox4, on room air, with stable vital signs. pt was given dc and prescription instructions, pt was able to verbalize understanding, pt id band and iv site removed without complications. pt is able to ambulate with steady gait. pt took all belongings.
--- NOTE | 2019-08-02 12:58 | Diagnostic Imaging Report ---
Indication: 23-year-old female. Pelvic pain. History of ectopic 2017 Technique: Grayscale and duplex Doppler imaging of the pelvis performed utilizing a transabdominal scan and endovaginal scan. Comparison: None Findings: Single living IUP demonstrated. Based on crown-rump length gestational age estimated at 6 weeks one day. heart tones and yolk sac demonstrated. Trace a hypoechoic collection noted adjacent to the decidual consistent with subchorionic bleed. The ovaries appear normal bilaterally. There is dopplerable blood flow within both ovaries. Trace free fluid noted within the cul-de-sac. Left ovary measures 2.7 x 1.5 x 2.4 cm. Right ovary 2.7 x 1.6 x 2.1 cm. IMPRESSION: Single living intrauterine 6 weeks one day gestational age. Trace subchorionic bleed.
== END 2019-08-02 12:54 | disposition home or self-care (01) ==
LOC: EMR 08:47
DX: O21.9 Vomiting of pregnancy, unspecified (principal); Z3A.01 Less than 8 weeks gestation of pregnancy; O99.321 Drug use complicating pregnancy, first trimester; F12.10 Cannabis abuse, uncomplicated
CPT/HCPCS: 36415; 76801; 80053; 80307; 81003; 81025; 84702; 85025; 87491; 87590; 96361; 96374; J2405; Z7502; 99284

== ENCOUNTER 2020-08-05 19:15 | Emergency (ER) | payer OTHER ==
[~2020-08-05] VITALS: Ht 157.5 cm; Wt 59.0 kg
[~2020-08-05 19:15] MED LIST changes: +ONDANSETRON ODT4 MG BC
[2020-08-05 19:35] VITALS: BP 128/83
--- NOTE | 2020-08-05 19:35 | NUR ---
ED Nurse Note: Patient walked into ED for c/o abdominal pain with an episode of N/V onset last night. Patient appears moderately distressed due to pain. She states that the pain is aching is in her lower abdomen; nonradiating. She denies any vaginal bleeding or dysuria. Patient is aaox4, breathing is normal and unlabored. IV line established, blood drawn and sent to lab. Patient is in bed; safety measures in place.
[2020-08-05] MEDS ORDERED: Morphine Sulfate 4mg/ml Inj (IV USE ONLY) IVP ONE (19:45)
[2020-08-05 20:17] LABS: APPEARANCE,URINE SLIGHTLY CLOUDY; BILIRUBIN, URINE NEGATIVE (NEGATIVE); COLOR,URINE PALE YELLOW; GLUCOSE, URINE (UA) NEGATIVE (NEGATIVE); KETONES,URINE 2+ (NEGATIVE); LEUKOCYTE ESTERASE ,URINE 3+ (NEGATIVE); NITRITE,URINE NEGATIVE (NEGATIVE); PH,URINE 6 (4.5-8.0); PROTEIN,URINE 2+ (NEGATIVE); UROBILINOGEN,URINE NORMAL MG/DL (0.0-1.0)
[2020-08-05 20:19] LABS: EOSINOPHILS % (AUTO) 0.3 % (0.0-3.0); HEMATOCRIT 41.9 % (37.0-47.0); HEMOGLOBIN 14.4 G/DL (12.0-16.0); LYMPHOCYTES % (AUTO) 23.8 % (20.0-45.0); MEAN CORPUSCULAR VOLUME 96 FL (80-99); MONOCYTES % (AUTO) 6.1 % (1.0-10.0); NEUTROPHILS % (AUTO) 68.8 % (45.0-75.0); PLATELET COUNT 261 K/UL (150-450); RED BLOOD COUNT 4.37 M/UL (4.20-5.40); RED CELL DISTRIBUTION WIDTH 11.5 % (11.6-14.8); WHITE BLOOD COUNT 11.5 K/UL (4.8-10.8)
[2020-08-05 20:25] LABS: ANION GAP 11 mmol/L (5-15); BLOOD UREA NITROGEN 6 mg/dL (7-18); CALCIUM 9.6 MG/DL (8.5-10.1); CARBON DIOXIDE 24 MMOL/L (21-32); CHLORIDE 100 MMOL/L (98-107); CREATININE 0.5 MG/DL (0.55-1.30); POTASSIUM 3.5 MMOL/L (3.5-5.1); SODIUM 135 MMOL/L (136-145)
[2020-08-05 20:29] LABS: ALANINE AMINOTRANSFERASE 91 U/L (12-78); ALBUMIN 4.3 G/DL (3.4-5.0); ALBUMIN/GLOBULIN RATIO 1.5 (1.0-2.7); ALKALINE PHOSPHATASE 75 U/L (46-116); ASPARTATE AMINO TRANSFERASE 40 U/L (15-37); BILIRUBIN,TOTAL 0.6 MG/DL (0.2-1.0)
[2020-08-05] MEDS ORDERED: cefTRIAXone 1 GM in NS 55 ML IVPB ONE (20:45)
--- NOTE | 2020-08-05 20:50 | NUR ---
ED Nurse Note: US is bedside.
--- NOTE | 2020-08-05 21:30 | NUR ---
ED Nurse Note: Patient is sleeping in bed, does not appear to be in any pain or distress.
--- NOTE | 2020-08-05 21:58 | Emergency Room Report ---
History of Present Illness General Chief Complaint: Abdominal Pain Source: Patient Present Illness HPI 24-year-old female presents to ED for abdominal pain. Pain started last night. Pain is suprapubic, sharp, 8 out of 10, nonradiating. Denies dysuria. Denies nausea or vomiting. States that she had a baby about 5 months ago. Does not believe she is . Last menstrual period was end of last month. No other aggravating relieving factors. Denies any other associated symptoms Allergies: Coded Allergies: No Known Allergies (Unverified , 01/14/17) COVID-19 Screening Contact w/high risk pt: No Experienced COVID-19 symptoms?: No COVID-19 Testing performed BUSINESS OFFICE DIRECTOR: No Patient History Past Medical History: none Past Surgical History: none Pertinent Family History: none Social History: Denies: smoking, alcohol use, drug use Last Menstrual Period: 07/13 Now: No Immunizations: UTD Reviewed Nursing Documentation: PMH: Agreed; PSxH: Agreed Nursing Documentation-PMH Past Medical History: No Stated History Review of Systems All Other Systems: negative except mentioned in HPI Physical Exam Vital Signs Date Time Temp Pulse Resp B/P (MAP) Pulse Ox O2 Delivery O2 Flow Rate FiO2 08/05/20 19:16 98.4 86 18 128/83 (98) 95 Room Air Sp02 EP Interpretation: reviewed, normal General Appearance: no apparent distress, alert, GCS 15, non-toxic Head: normocephalic, atraumatic Eyes: bilateral eye normal inspection, bilateral eye PERRL ENT: hearing grossly normal, normal pharynx, no angioedema, normal voice Neck: full range of motion, supple/symm/no masses Respiratory: chest non-tender, lungs clear, normal breath sounds, speaking full sentences Cardiovascular #1: regular rate, rhythm, no edema Cardiovascular #2: 2+ carotid (R), 2+ carotid (L), 2+ radial (R), 2+ radial (L), 2+ dorsalis pedis (R), 2+ dorsalis pedis (L) Gastrointestinal: normal bowel sounds, soft, non-distended, no guarding, no rebound, tenderness - suprapubic Rectal: deferred Genitourinary: normal inspection, no CVA tenderness Musculoskeletal: back normal, normal range of motion, gait/station normal, non- tender Neurologic: alert, motor strength/tone normal, oriented x3, sensory intact, responsive, speech normal Psychiatric: judgement/insight normal, memory normal, mood/affect normal, no suicidal/homicidal ideation Reflexes: 3+ bicep (R), 3+ bicep (L), 3+ tricep (R), 3+ tricep (L), 3+ knee (R), 3+ knee (L) Lymphatic: no adenopathy Medical Decision Making Diagnostic Impression: Primary Impression: Early stage of Additional Impressions: Threatened UTI (urinary tract infection) Qualified Codes: N39.0 - Urinary tract infection, site not specified Subchorionic hemorrhage Qualified Codes: O41.8X10 - Other specified disorders of amniotic fluid and membranes, first trimester, not applicable or unspecified; O46.8X1 - Other antepartum hemorrhage, first trimester ER Course Hospital Course 24-year-old female presents to ED complaining of lower abdominal pain with N/V. Differential diagnoses include: gastrits, gastroenterits, ectopic , ovarian torsion/cyst, UTI Clinical course Patient placed on stretcher in ED. After initial history and physical I ordered labs, IV fluids pain meds, Labs-no leukocytosis, electrolytes okay, beta hCG +, UA + bacteria Patient did not realize she was . Currently had a baby 5 months ago. Is not breast-feeding. OB US -IUP approximately 6 weeks with good heart rate. Subchorionic hemorrhage noted Given IV antibiotics. Given pain meds. Given IV fluids. discussed findings with patient. Explained that breast-feeding is prophylaxis. Will discharge home with antibiotics, Zofran, vitamins. Given copy of ultrasound report. Requires close follow-up with [employer] Diagnosis -early stage of , threatened , UTI, subchorionic hemorrhage Stable and discharged to home with Rx keflex, zofran, tylenol and vitamins. Followup with PMD/[employer]. Return to ED if symptoms recur or worsen Laboratory Tests Test 08/05/20 19:35 White Blood Count 11.5 K/UL (4.8-10.8) H Red Blood Count 4.37 M/UL (4.20-5.40) Hemoglobin 14.4 G/DL (12.0-16.0) Hematocrit 41.9 % (37.0-47.0) Mean Corpuscular Volume 96 FL (80-99) Mean Corpuscular Hemoglobin 32.8 PG (27.0-31.0) H Mean Corpuscular Hemoglobin Concent 34.3 G/DL (32.0-36.0) Red Cell Distribution Width 11.5 % (11.6-14.8) L Platelet Count 261 K/UL (150-450) Mean Platelet Volume 9.1 FL (6.5-10.1) Neutrophils (%) (Auto) 68.8 % (45.0-75.0) Lymphocytes (%) (Auto) 23.8 % (20.0-45.0) Monocytes (%) (Auto) 6.1 % (1.0-10.0) Eosinophils (%) (Auto) 0.3 % (0.0-3.0) Basophils (%) (Auto) 1.0 % (0.0-2.0) Urine Color Pale yellow Urine Appearance Slightly cloudy Urine pH 6 (4.5-8.0) Urine Specific [place] 1.010 (1.005-1.035) Urine Protein 2+ (NEGATIVE) H Urine Glucose (UA) Negative (NEGATIVE) Urine Ketones 2+ (NEGATIVE) H Urine Blood 5+ (NEGATIVE) H Urine Nitrite Negative (NEGATIVE) Urine Bilirubin Negative (NEGATIVE) Urine Urobilinogen Normal MG/DL (0.0-1.0) Urine Leukocyte Esterase 3+ (NEGATIVE) H Urine RBC 20-30 /HPF (0 - 2) H Urine WBC 40-60 /HPF (0 - 2) H Urine Squamous Epithelial Cells Many /LPF (NONE/OCC) H Urine Bacteria Moderate /HPF (NONE) H Urine HCG, Qualitative Positive (NEGATIVE) Sodium Level 135 MMOL/L (136-145) L Potassium Level 3.5 MMOL/L (3.5-5.1) Chloride Level 100 MMOL/L (98-107) Carbon Dioxide Level 24 MMOL/L (21-32) Anion Gap 11 mmol/L (5-15) Blood Urea Nitrogen 6 mg/dL (7-18) L Creatinine 0.5 MG/DL (0.55-1.30) L Estimat Glomerular Filtration Rate > 60 mL/min (>60) Glucose Level 103 MG/DL (74-106) Calcium Level 9.6 MG/DL (8.5-10.1) Total Bilirubin 0.6 MG/DL (0.2-1.0) Aspartate Amino Transf (AST/SGOT) 40 U/L (15-37) H Alanine Aminotransferase (ALT/SGPT) 91 U/L (12-78) H Alkaline Phosphatase 75 U/L (46-116) Total Protein 7.2 G/DL (6.4-8.2) Albumin 4.3 G/DL (3.4-5.0) Globulin 2.9 g/dL Albumin/Globulin Ratio 1.5 (1.0-2.7) Lipase 67 U/L (73-393) L Human Chorionic Gonadotropin, Quant 53561 mIU/mL (1-6) H CT/MRI/US Diagnostic Results CT/MRI/US Diagnostic Results : Imaging Test Ordered: OB US Impression Procedure: US OB 1st Trimester Gestation EXAM: US First Trimester Additional Gestation, Transabdominal CLINICAL HISTORY: ABD PAIN TECHNIQUE: Real-time transabdominal obstetrical ultrasound with image documentation of the maternal pelvis and an additional first trimester . COMPARISON: None. FINDINGS: ADDITIONAL GESTATION: Gestation: A single intrauterine is visualized with ultrasound estimated age of 6 weeks and 1 day with estimated date of delivery of 03/30/2021. The crown-rump length measurement is 0.41 cm corresponding to 6 weeks and 1 day. Normal cardiac activity of 120 bpm. Placenta/amniotic fluid: A small area of decreased echogenicity by the gestational sac measuring 0.9 x 0.2 cm most compatible with small subchorionic hemorrhage. Ovaries: The right ovary measures 2.4 x 1.1 x 1.0 cm. The left ovary measures 3.0 x 2.2 x 2.2 cm. Round hypoechoic structure with peripheral vascular flow most compatible with a corpus luteum cyst within the left ovary. IMPRESSION: 1. Single live intrauterine with ultrasound age of 6 weeks and 1 day and estimated date of delivery of 03/30/2020 one-point 2. Small subchronic hemorrhage measuring 0.9 x 0.2 cm. Remainder of the pelvic ultrasound unremarkable. Last Vital Signs Date Time Temp Pulse Resp B/P (MAP) Pulse Ox O2 Delivery O2 Flow Rate FiO2 08/05/20 20:11 98.4 08/05/20 19:35 86 18 128/83 95 Room Air Status: improved Disposition: HOME, SELF-CARE Condition: Stable Scripts Acetaminophen* (TYLENOL EXTRA STRENGTH*) 500 Mg Tablet 500 MG ORAL Q8H PRN for Prn Headache/Temp > 101, #30 TAB 0 Refills Prov: Flo Stauffer MD 08/05/20 Docosahexanoic Acid ( DHA) 200 Mg Capsule 200 MG PO DAILY, #30 CAP Prov: Flo Stauffer MD 08/05/20 Cephalexin* (KEFLEX*) 500 Mg Capsule 500 MG ORAL EVERY 6 HOURS, #28 CAP Prov: Flo Stauffer MD 08/05/20 Ondansetron Odt* (ZOFRAN ODT*) 4 Mg Tab.rapdis 4 MG BC EVERY 6 HOURS PRN for Nausea & Vomiting, #20 TAB 0 Refills Prov: Flo Stauffer MD 08/05/20 Referrals: [facility],REFERRING (PCP) Flo Stauffer MD Aug 05, 2020 21:58
--- NOTE | 2020-08-05 22:11 | Diagnostic Imaging Report ---
EXAM: US First Trimester Additional Gestation, Transabdominal CLINICAL HISTORY: ABD PAIN TECHNIQUE: Real-time transabdominal obstetrical ultrasound with image documentation of the maternal pelvis and an additional first trimester . COMPARISON: None. FINDINGS: ADDITIONAL GESTATION: Gestation: A single intrauterine is visualized with ultrasound estimated age of 6 weeks and 1 day with estimated date of delivery of 03/30/2021. The crown-rump length measurement is 0.41 cm corresponding to 6 weeks and 1 day. Normal cardiac activity of 120 bpm. Placenta/amniotic fluid: A small area of decreased echogenicity by the gestational sac measuring 0.9 x 0.2 cm most compatible with small subchorionic hemorrhage. Ovaries: The right ovary measures 2.4 x 1.1 x 1.0 cm. The left ovary measures 3.0 x 2.2 x 2.2 cm. Round hypoechoic structure with peripheral vascular flow most compatible with a corpus luteum cyst within the left ovary. IMPRESSION: 1. Single live intrauterine with ultrasound age of 6 weeks and 1 day and estimated date of delivery of 03/30/2020 one-point 2. Small subchronic hemorrhage measuring 0.9 x 0.2 cm. Remainder of the pelvic ultrasound unremarkable.
[2020-08-05] MEDS ORDERED: TYLENOL EXTRA500 MG ORAL ×3 (22:24→22:35)
[2020-08-05] MEDS ORDERED: ONDANSETRON ODT4 MG BC ×3 (22:24→22:35)
[2020-08-05] MEDS ORDERED: CEPHALEXIN500 MG ORAL ×3 (22:24→22:35)
[2020-08-05] MEDS ORDERED: PRENATAL DHA200 MG PO ×3 (22:24→22:35)
[2020-08-05 22:40] VITALS: BP 119/80
== END 2020-08-05 22:40 | disposition home or self-care (01) ==
LOC: EMR 19:50
DX: O20.0 Threatened abortion (principal); O41.8X10 Other specified disorders of amniotic fluid and membranes, first trimester, not applicable or unspecified; O23.41 Unspecified infection of urinary tract in pregnancy, first trimester; O46.8X1 Other antepartum hemorrhage, first trimester; Z3A.01 Less than 8 weeks gestation of pregnancy
CPT/HCPCS: 36415; 76801; 76817; 80053; 81003; 81025; 83690; 84702; 85025; 87086; 96361; 96365; 96375; J0696; J2270; J2405; J7030; Z7502; 99284

== ENCOUNTER 2020-08-11 17:09 | Emergency (ER) | payer OTHER ==
[~2020-08-11] VITALS: Ht 157.5 cm; Wt 59.0 kg
[~2020-08-11 17:09] MED LIST changes: +CEPHALEXIN500 MG ORAL; +PRENATAL DHA200 MG PO
[2020-08-11] MEDS ORDERED: Morphine Sulfate 2mg/ml Inj(IV/IM USE ONLY) IVP ONE ×2 (17:45→18:45)
[2020-08-11 17:57] LABS: APPEARANCE,URINE CLOUDY; BILIRUBIN, URINE NEGATIVE (NEGATIVE); GLUCOSE, URINE (UA) NEGATIVE (NEGATIVE); KETONES,URINE 4+ (NEGATIVE); LEUKOCYTE ESTERASE ,URINE 1+ (NEGATIVE); NITRITE,URINE NEGATIVE (NEGATIVE); PH,URINE 6 (4.5-8.0); PROTEIN,URINE 2+ (NEGATIVE); UROBILINOGEN,URINE 1 MG/DL (0.0-1.0)
[2020-08-11 17:58] LABS: EOSINOPHILS % (AUTO) 0.3 % (0.0-3.0); HEMATOCRIT 42.8 % (37.0-47.0); HEMOGLOBIN 14.6 G/DL (12.0-16.0); LYMPHOCYTES % (AUTO) 28.6 % (20.0-45.0); MEAN CORPUSCULAR VOLUME 96 FL (80-99); MONOCYTES % (AUTO) 6.3 % (1.0-10.0); NEUTROPHILS % (AUTO) 63.9 % (45.0-75.0); PLATELET COUNT 274 K/UL (150-450); RED BLOOD COUNT 4.46 M/UL (4.20-5.40); RED CELL DISTRIBUTION WIDTH 11.7 % (11.6-14.8); WHITE BLOOD COUNT 11.7 K/UL (4.8-10.8)
[2020-08-11 17:59] LABS: COLOR,URINE YELLOW
[2020-08-11 18:04] VITALS: BP 115/69
[2020-08-11 18:09] LABS: ALANINE AMINOTRANSFERASE 76 U/L (12-78); ALBUMIN 4.2 G/DL (3.4-5.0); ALBUMIN/GLOBULIN RATIO 1.3 (1.0-2.7); ALKALINE PHOSPHATASE 81 U/L (46-116); ASPARTATE AMINO TRANSFERASE 22 U/L (15-37); BILIRUBIN,TOTAL 0.7 MG/DL (0.2-1.0); BLOOD UREA NITROGEN 5 mg/dL (7-18); CALCIUM 9.9 MG/DL (8.5-10.1); CARBON DIOXIDE 23 MMOL/L (21-32); CHLORIDE 100 MMOL/L (98-107); CREATININE 0.6 MG/DL (0.55-1.30); POTASSIUM 3.8 MMOL/L (3.5-5.1); SODIUM 136 MMOL/L (136-145)
--- NOTE | 2020-08-11 18:16 | Emergency Room Report ---
History of Present Illness General Chief Complaint: Complications Source: Patient Present Illness HPI 24-year-old female with no significant past medical history who is A1 with 1 history of ectopic here complaining of epigastric abdominal pain and multiple bouts of nonbloody emesis. Patient was last seen at [facility] 1 week ago, OB ultrasound showed that she is about 6 weeks and has a small subchorionic hemorrhage. Patient denies any vaginal bleeding or spotting at this time. Reports that she continues to have urinary frequency and urgency. Did visit her COVERING MACHINE TENDER after her last visit [facility] last week and was told to continue taking antibiotics and nausea medication. Patient has been taking Tylenol for pain with minimal relief. Reports that due to multiple bouts of nonbloody emesis and epigastric pain she feels short of breath however denies any pleuritic chest pain, lower extremities edema. Reports that she gave 5 months ago and has not yet fully recovered after her last . Denies any fever and chills, headache and dizziness. Allergies: Coded Allergies: No Known Allergies (Unverified , 01/14/17) COVID-19 Screening Contact w/high risk pt: No Experienced COVID-19 symptoms?: No COVID-19 Testing performed HANDS HANGER: No Patient History Past Medical History: see triage record Past Surgical History: none Pertinent Family History: none Last Menstrual Period: pt dont remember. Now: Yes Immunizations: UTD Reviewed Nursing Documentation: PMH: Agreed; PSxH: Agreed Nursing Documentation-PMH Past Medical History: No Stated History Review of Systems All Other Systems: negative except mentioned in HPI Physical Exam Vital Signs Date Time Temp Pulse Resp B/P (MAP) Pulse Ox O2 Delivery O2 Flow Rate FiO2 08/11/20 17:22 97.9 109 16 133/78 (96) 97 Room Air Sp02 EP Interpretation: reviewed, normal General Appearance: no apparent distress, alert, GCS 15, non-toxic Head: normocephalic, atraumatic Eyes: bilateral eye normal inspection, bilateral eye PERRL ENT: hearing grossly normal, normal pharynx, no angioedema, normal voice Neck: supple Respiratory: chest non-tender, lungs clear, normal breath sounds, speaking full sentences Cardiovascular #1: regular rate, rhythm, no edema Gastrointestinal: normal bowel sounds, non tender, soft, no mass, no organomegaly, no peritonitis, no bruit, non-distended, no guarding, no hernia, n o rebound Rectal: deferred Genitourinary: no CVA tenderness Musculoskeletal: back normal, no calf tenderness Neurologic: alert, motor strength/tone normal, oriented x3, sensory intact, responsive, speech normal Psychiatric: judgement/insight normal, memory normal, mood/affect normal, no suicidal/homicidal ideation Skin: no rash Lymphatic: no adenopathy Medical Decision Making PA Attestation All my diagnosis and treatment plans were reviewed ad discussed with my supervising physician Dr. Stauffer Diagnostic Impression: Primary Impression: Abdominal pain affecting Additional Impressions: UTI (urinary tract infection) during Vaginitis affecting , antepartum Acute gastritis Subchorionic hemorrhage ER Course 24-year-old female with no significant past medical history who is A1 with 1 history of ectopic here complaining of epigastric abdominal pain and multiple bouts of nonbloody emesis. Patient was last seen at [facility] 1 week ago, OB ultrasound showed that she is about 6 weeks and has a small subchorionic hemorrhage. Patient denies any vaginal bleeding or spotting at this time. Reports that she continues to have urinary frequency and urgency. Did visit her COVERING MACHINE TENDER after her last visit [facility] last week and was told to continue taking antibiotics and nausea medication. Patient has been taking Tylenol for pain with minimal relief. Reports that due to multiple bouts of nonbloody emesis and epigastric pain she feels short of breath however denies any pleuritic chest pain, lower extremities edema. Reports that she gave 5 months ago and has not yet fully recovered after her last . Denies any fever and chills, headache and dizziness. Ddx considered but are not limited to: Ectopic , spontaneous , abdominal pain during , threatened , subchorionic hemorrhage, U TI during , pyelonephritis during Vital signs: are WNL, pt. is afebrile H&PE are most consistent with: Abdominal pain during , UTI during , vaginitis during , gastritis, subchorionic hemorrhage ORDERS: UA, urine cx, hCG quantitative, type and screen, CBC, CMP, OB ultrasound, troponin, Pepcid, Diclegis, Tylenol, Keflex, Monistat ED INTERVENTIONS: NS bolus, Zofran, Pepcid Patient still has a UTI to continue taking Keflex for a longer duration and fo llow-up with COVERING MACHINE TENDER. DISCHARGE: At this time pt. is stable for d/c to home. Will provide printed patient care instructions, and any necessary prescriptions. Care plan and follow up instructions have been discussed with the patient prior to discharge. Patient take medication as directed, follow-up primary care provider, see COVERING MACHINE TENDER in 24 to 48 hours, avoid eating spicy acidic food, if worsening symptoms return to the emergency room EKG Diagnostic Results Rate: normal Rhythm: NSR ST Segments: no acute changes Other Impression No acute ST changes ASA given to the pt in ED: No CT/MRI/US Diagnostic Results CT/MRI/US Diagnostic Results : Imaging Test Ordered: OB ultrasound Impression COMPARISON: No relevant prior studies available. FINDINGS: Gestation: Single live IUP with an estimated gestational age of 6 weeks and 6 days. Normal heart tones measured 149 bpm. Placenta/amniotic fluid: Small subchorionic hemorrhage measuring up to 16 mm. Uterus/cervix: Unremarkable. No myometrial mass. Ovaries: Unremarkable. No mass. Free fluid: Trace free fluid in the cul-de-sac. IMPRESSION: 1. Single live IUP with an estimated gestational age of 6 weeks and 6 days. 2. Small subchorionic hemorrhage measuring up to 16 mm. Last Vital Signs Date Time Temp Pulse Resp B/P (MAP) Pulse Ox O2 Delivery O2 Flow Rate FiO2 08/11/20 18:04 72 15 115/69 99 Room Air 08/11/20 17:22 97.9 Disposition: HOME, SELF-CARE Condition: Stable Scripts Acetaminophen* (TYLENOL EXTRA STRENGTH*) 500 Mg Tablet 500 MG ORAL Q8H PRN for Prn Headache/Temp > 101, #30 TAB 0 Refills Prov: Dorothy Jeter 08/11/20 Miconazole Nitrate (Monistat 1) 1 Each Kit 1 EACH VG DAILY, #10 PACK Prov: Dorothy Jeter 08/11/20 Famotidine* (Pepcid 20mg tablet*) 20 Mg Tablet 20 MG ORAL DAILY, #30 TAB 0 Refills Prov: Dorothy Jeter 08/11/20 Cephalexin* (KEFLEX*) 500 Mg Capsule 500 MG ORAL EVERY 12 HOURS for 7 Days, #14 CAP 0 Refills Prov: Doorthy Jeter 08/11/20 Doxylamine/Pyridoxine Hcl (RADHA BEAULIEU 10-10 MG TABLET) 1 Each Tablet. 1 EACH PO DAILY, #20 TAB Prov: Dorothy Jeter 08/11/20 Referrals: [facility],REFERRING (PCP) Patient Instructions: Abdominal Pain During , [id number], Urinary Tract Infection, [id number], Vaginitis, [id number] Additional Instructions: Patient take medication as directed, follow-up primary care provider, see COVERING MACHINE TENDER in 24 to 48 hours, avoid eating spicy acidic food, if worsening symptoms return to the emergency room Dorothy Jeter Aug 11, 2020 18:16
[2020-08-11] MEDS ORDERED: TYLENOL EXTRA500 MG ORAL (19:47)
[2020-08-11] MEDS ORDERED: MONISTAT 11 EACH VG (19:47)
[2020-08-11] MEDS ORDERED: FAMOTIDINE20 MG ORAL (19:47)
[2020-08-11] MEDS ORDERED: DICLEGIS DR 101 EACH PO (19:47)
[2020-08-11] MEDS ORDERED: CEPHALEXIN500 MG ORAL (19:47)
--- NOTE | 2020-08-11 19:47 | Diagnostic Imaging Report ---
EXAM: US First Trimester , Transabdominal and Transvaginal CLINICAL HISTORY: PAIN TECHNIQUE: Real-time transabdominal and transvaginal obstetrical ultrasound of the maternal pelvis and a first trimester with image documentation. Transvaginal imaging was used for better evaluation of the fetus and adnexa. COMPARISON: No relevant prior studies available. FINDINGS: Gestation: Single live IUP with an estimated gestational age of 6 weeks and 6 days. Normal heart tones measured 149 bpm. Placenta/amniotic fluid: Small subchorionic hemorrhage measuring up to 16 mm. Uterus/cervix: Unremarkable. No myometrial mass. Ovaries: Unremarkable. No mass. Free fluid: Trace free fluid in the cul-de-sac. IMPRESSION: 1. Single live IUP with an estimated gestational age of 6 weeks and 6 days. 2. Small subchorionic hemorrhage measuring up to 16 mm.
[2020-08-11 20:05] VITALS: BP 116/71
--- NOTE | 2020-08-12 13:44 | Cardiology Report ---
APPROVED REPORT EKG Measurement Heart [id number] <Conclusion> Normal sinus rhythm with sinus arrhythmia Normal ECG
== END 2020-08-11 20:05 | disposition home or self-care (01) ==
LOC: EMR 17:30
DX: O23.41 Unspecified infection of urinary tract in pregnancy, first trimester (principal); O46.8X1 Other antepartum hemorrhage, first trimester; O23.591 Infection of other part of genital tract in pregnancy, first trimester; Z3A.01 Less than 8 weeks gestation of pregnancy; N76.0 Acute vaginitis; K29.00 Acute gastritis without bleeding
CPT/HCPCS: 36415; 76801; 76817; 80053; 81003; 84484; 84702; 85025; 86850; 86900; 86901; 87086; 93005; 96361; 96374; 96375; J2270; J2405; J7030; S0028; Z7502; 99284

== ENCOUNTER 2020-08-15 22:25 | Emergency (ER) | payer OTHER ==
[~2020-08-15] VITALS: Ht 157.5 cm; Wt 56.7 kg
[~2020-08-15 22:25] MED LIST changes: +DICLEGIS DR 101 EACH PO; +FAMOTIDINE20 MG ORAL; +MONISTAT 11 EACH VG
[2020-08-15 22:40] VITALS: BP 114/75
[2020-08-15 23:05] LABS: BASOPHILS % (AUTO) 0.7 % (0.0-2.0); EOSINOPHILS % (AUTO) 0.1 % (0.0-3.0); HEMATOCRIT 41.7 % (37.0-47.0); HEMOGLOBIN 14.1 G/DL (12.0-16.0); LYMPHOCYTES % (AUTO) 21.7 % (20.0-45.0); MEAN CORPUSCULAR VOLUME 95 FL (80-99); MONOCYTES % (AUTO) 5.3 % (1.0-10.0); NEUTROPHILS % (AUTO) 72.2 % (45.0-75.0); PLATELET COUNT 287 K/UL (150-450); RED BLOOD COUNT 4.37 M/UL (4.20-5.40); RED CELL DISTRIBUTION WIDTH 11.5 % (11.6-14.8); WHITE BLOOD COUNT 12.3 K/UL (4.8-10.8)
[2020-08-15] MEDS ORDERED: Metoclopramide 10mg/2ml Inj IVP ONE (23:15)
[2020-08-15 23:19] LABS: ANION GAP 11 mmol/L (5-15); BLOOD UREA NITROGEN 4 mg/dL (7-18); CALCIUM 9.6 MG/DL (8.5-10.1); CARBON DIOXIDE 24 MMOL/L (21-32); CHLORIDE 104 MMOL/L (98-107); CREATININE 0.5 MG/DL (0.55-1.30); POTASSIUM 3.7 MMOL/L (3.5-5.1); SODIUM 139 MMOL/L (136-145)
[2020-08-15 23:23] LABS: ALANINE AMINOTRANSFERASE 52 U/L (12-78); ALBUMIN 4.1 G/DL (3.4-5.0); ALBUMIN/GLOBULIN RATIO 1.1 (1.0-2.7); ALKALINE PHOSPHATASE 77 U/L (46-116); ASPARTATE AMINO TRANSFERASE 21 U/L (15-37); BILIRUBIN,TOTAL 0.5 MG/DL (0.2-1.0)
--- NOTE | 2020-08-15 23:32 | Emergency Room Report ---
History of Present Illness General Chief Complaint: Abdominal Pain Source: Patient Present Illness HPI 24-year-old female A2 presents with diffuse abdominal cramping after taking pills at [facility] on 08/13 (mifepristone) and 08/14 (misoprostol). Patient confirms that this is unwanted. She came to the ED last week and was diagnosed with intrauterine and subchorionic hemorrhage which [facility] is managing. She was prescribed keflex for UTI and has been compliant with the dosing. She thinks she is suffering side effects from the medications. Endorses vaginal bleeding with clots passing since yesterday after taking the pill associated with cramps, nausea, vomiting (non bloody) and diarrhea (non bloody). She denies any fevers, flank pain, headache, photophobia, neck pain, visual changes, chest pain, shortness of breath. Her primary care doctor is Dr. Dalton The patient's symptoms were gradual onset, severity was moderate, duration since 08/13. Quality: Cramping Past medical history: Previous ectopic status post removal Past surgical history: Laparoscopic removal of ectopic Smoking: Denies Alcohol use: Denies Drug use: Denies Review of systems: CONST: No fevers or chills, No night sweats PULMONARY: No productive cough, No shortness of breath CARDIAC: No chest pain, No palpitations GI: ++ vomiting, ++ diarrhea , No melena_or_BRBPR : No dysuria, No hematuria, No discharge NEURO: No new_focal_weakness_or_numbness, No confusion, No vision changes 14 point Review of Systems is otherwise negative except per HPI Physical Exam: GENERAL: Awake_alert_ nontoxic, no acute distress Spo2 96% on RA -normal EYES: Extraocular muscles are intact. Conjunctivae clear. Lids without swelling ENT: External nose and ear normal_in_appearance. Oropharynx clear. Head_atraumatic, Moist_oral_mucosa NECK: No JVD. No meningismus. No thyromegaly. Supple. Trachea midline RESP: Normal respiratory effort. Symmetric rise. No stridor. Clear_to_auscultation_No_rales_No_wheezes CARDIAC: Regular rate and regular rhytm. No_significant pedal edema. ABDOMEN: Soft. Nondistended. Nontender_No_rebound_or_guarding. No CVA tenderness to palpation. No guarding or rebound. Negative Rovsing. Negative Antonio. Negative obturator sign. No flank ecchymosis. No pelvic instability : NO vaginal DC, trace old bleeding, os is closed. normal ext genitalia, no CMT, Chaperoned by female social staff workerMATTY Stone MSK: Normal muscle tone, without rigidity. Extremities without asymmetric deformity or swelling. SKIN: Warm and dry. No visible cyanosis or pallor NEUROLOGIC: Alert, oriented x3. Motor_and_sensation_grossly_intact. No truncal ataxia. Gait_normal Psych: Normal mood and affect, normal judgment and insight - COORDINATION OF CARE Case was discussed with: Patient Any labs and imaging that were ordered were interpreted as part of the medical decision making: Medical Decision Making/Plan: DDX: abdominal cramps 2/2 medical vs subchorionic hemorrhage vs UTI vs pyelonephritis vs appendicitis I reviewed previous medical records from 08/11/20. Patient was seen in the emergency department. Laboratory evaluation showed quant level of 122,888 , UA positive for UTI, and ultrasound IUP 6wk 6 day subchorionic hemorrhage, no ectopic . She was told to continue keflex. In ED today, patient is afebrile. Abdominal examination is benign. No CVA tenderness to palpation. No Rovsing's or obturator sign. Doubt appendicitis. Antonio sign is negative. No focal neuro deficits. Pelvic examination shows closed os. No vaginal hemorrhage, CMT or adnexal TTP. Patient confirmed several times that this is an UNINTENDED and verbally consents to all care including medications to treat the cause of her vomiting. These discussions were witnessed by MATTY Stone as well. Labs show leukocytosis of 12.3, mild increase from yesterday, but likely 2/2 hemoconcentration from GI losses. Ultrasound today shows single viable intrauterine gestational at 8 weeks with heart rate 160s. Also re-demonstrated small subchorionic hemorrhage. No tubo-ovarian abscess. No ovarian torsion. No abdominal free fluid I did consult PROCESS ARTIST Dr. Keri Landry and discussed the patient's imaging and lab work. She states that the patient's symptoms are very common after taking medications, specifically misoprostol and mifepristone, which she took. Dr Landry recommends discharge home with follow-up tomorrow with [facility] and to DC with Zofran ODT. Dr Landry is in agreement with the ED plan thus far. She does not recommend acute surgical intervention at this time. ED intervention included IV fluids, Reglan, Zofran and Keflex with full relief of symptoms Over the course of her ED stay, serial abdominal exams were performed and reassuring without any peritoneal signs. The patients abdominal imaging did not show any evidence of any emergent process or condition requiring immediate surgery. The patients symptoms significantly improved, exam upon discharge revealed a benign abdomen, and tolerating oral fluids. The patient appears stable for discharge to follow up with their TANK BUILDER AND ERECTOR 12hrs, and understand to return to the ED immediately if symptoms change or worsen. Will DC with vit B6, doxylamine, reglan. Offered zofran, but patient declined bc she already has it at home. Allergies: Coded Allergies: No Known Allergies (Unverified , 01/14/17) COVID-19 Screening Contact w/high risk pt: No Experienced COVID-19 symptoms?: No COVID-19 Testing performed SLIP BOX CHANGER: No Patient History Last Menstrual Period: 06-18-2020 Now: Yes - 7 weeks : 5 Para: 2 Nursing Documentation-PM Past Medical History: No Stated History Physical Exam Vital Signs Date Time Temp Pulse Resp B/P (MAP) Pulse Ox O2 Delivery O2 Flow Rate FiO2 08/15/20 22:37 98.8 99 18 114/75 (88) 96 Room Air Sp02 EP Interpretation: reviewed, normal Medical Decision Making Diagnostic Impression: Primary Impression: First trimester Additional Impressions: Inevitable Subchorionic hemorrhage UTI (urinary tract infection) during Abdominal pain affecting Nausea & vomiting Rhythm Strip Diag. Results Rhythm Strip Time: 00:03 EP Interpretation: yes Rate: 96 Rhythm: NSR, no PVC's, no ectopy CT/MRI/US Diagnostic Results CT/MRI/US Diagnostic Results : Impression US First Trimester , Transabdominal and Transvaginal CLINICAL HISTORY: ABD PAIN COMPARISON: Pelvic ultrasound 08/11/2020. FINDINGS: Gestation: Single viable in intrauterine gestational , estimated age 8 weeks 0 days. Estimated delivery 03/27/2021. Average intrauterine gestational sac diameter 3.7 cm. Industry-rump length measures 1.3 cm. heart rate 162 bpm. Placenta/amniotic fluid: Cannot be adequately evaluated due to the early gestational age. Uterus/cervix: Cervix length 4 cm. No myometrial mass. Ovaries: Right ovary measures 2.5 x 1.5 x 2.1 cm. Left ovary measures 2.9 x 2.2 x 2.8 cm. Corpus luteum in the left ovary. No mass. Normal blood flow to the ovaries. Free fluid: Small subchronic hemorrhage. No pelvic free fluid. IMPRESSION: 1. Single viable in intrauterine gestational , estimated age 8 weeks 0 days. Estimated delivery 03/27/2021. 2. Small subchronic hemorrhage. Radiologist: Jamil Rose MD Electronically Signed: 08/16/20 00:39 Reevaluation Time: 00:45 Last Vital Signs Date Time Temp Pulse Resp B/P (MAP) Pulse Ox O2 Delivery O2 Flow Rate FiO2 08/15/20 22:37 98.8 99 18 114/75 (88) 96 Room Air Status: improved - Sleepin comfortably in bed Disposition: HOME, SELF-CARE Admit Decision Time: 00:45 Condition: Stable Scripts Cephalexin* (KEFLEX*) 500 Mg Capsule 500 MG ORAL EVERY 12 HOURS, #14 CAP 0 Refills Prov: Macedo,Tiffany D.O. 08/16/20 Metoclopramide Hcl* (REGLAN*) 5 Mg Tablet 5 MG ORAL Q8HR for nausea and vomiting for 5 Days, #15 TAB Prov: Macedo,Tiffany D.O. 08/16/20 Doxylamine Succinate (UNISOM SLEEP AID) 25 Mg Tablet 25 MG PO BID for nausea for 7 Days, #14 TAB Prov: Macedo,Tiffany D.O. 08/16/20 Pyridoxine Hcl (PYRIDOXINE HCL) 25 Mg Tablet 25 MG PO Q6HR for nausea for 7 Days, #28 TAB Prov: Macedo,Tiffany D.O. 08/16/20 Referrals: [facility],REFERRING (PCP) Patient Instructions: Nausea and Vomiting, Adult, [id number], Prostaglandin- Induced , Care After, Abdominal Pain, Adult Additional Instructions: Instructions for patient/race engine builder: Follow up with your Paint Stock Clerk in 12 hrs (first thing in the morning) . Follow up with your PMD Follow-up with your doctor sooner if your condition requires a more timely clinical reevaluation. Return to the emergency department immediately if you feel that your condition is worsening or if you have any new or concerning symptoms. Review your discharge instructions and take any prescriptions given as instructed. [facility] PROVIDES FREE OR LOW-COST HEALTH SERVICES TO PEOPLE WHO CAN SHOW PROOF THAT THEY LIVE IN [facility]. TO FIND MORE CLINICS PARTNERED WITH [facility] TO PROVIDE SERVICE, PLEASE CALL . Tiffany Macedo D.O. Aug 15, 2020 23:32
[2020-08-15] MEDS ORDERED: Cephalexin 250mg/5ml Susp 100mL Bottle ORAL ONE (23:45)
[2020-08-15] MEDS ORDERED: Omnipaque-300 100ml vial INJ PRN (23:45)
[2020-08-16 00:32] LABS: BILIRUBIN, URINE NEGATIVE (NEGATIVE); GLUCOSE, URINE (UA) NEGATIVE (NEGATIVE); KETONES,URINE 4+ (NEGATIVE); LEUKOCYTE ESTERASE ,URINE 1+ (NEGATIVE); NITRITE,URINE NEGATIVE (NEGATIVE); PH,URINE 6 (4.5-8.0); PROTEIN,URINE 2+ (NEGATIVE); UROBILINOGEN,URINE 1 MG/DL (0.0-1.0)
[2020-08-16 00:38] LABS: APPEARANCE,URINE SLIGHTLY CLOUDY; COLOR,URINE YELLOW
--- NOTE | 2020-08-16 00:40 | Diagnostic Imaging Report ---
EXAM: US First Trimester , Transabdominal and Transvaginal CLINICAL HISTORY: ABD PAIN TECHNIQUE: Real-time transabdominal and transvaginal obstetrical ultrasound of the maternal pelvis and a first trimester with image documentation. Transvaginal imaging was used for better evaluation of the fetus and adnexa. COMPARISON: Pelvic ultrasound 08/11/2020. FINDINGS: Gestation: Single viable in intrauterine gestational , estimated age 8 weeks 0 days. Estimated delivery 03/27/2021. Average intrauterine gestational sac diameter 3.7 cm. Jerome-rump length measures 1.3 cm. heart rate 162 bpm. Placenta/amniotic fluid: Cannot be adequately evaluated due to the early gestational age. Uterus/cervix: Cervix length 4 cm. No myometrial mass. Ovaries: Right ovary measures 2.5 x 1.5 x 2.1 cm. Left ovary measures 2.9 x 2.2 x 2.8 cm. Corpus luteum in the left ovary. No mass. Normal blood flow to the ovaries. Free fluid: Small subchronic hemorrhage. No pelvic free fluid. IMPRESSION: 1. Single viable in intrauterine gestational , estimated age 8 weeks 0 days. Estimated delivery 03/27/2021. 2. Small subchronic hemorrhage.
[2020-08-16] MEDS ORDERED: PYRIDOXINE HCL25 MG PO (00:49)
[2020-08-16] MEDS ORDERED: UNISOM SLEEP AI25 MG PO (00:49)
[2020-08-16] MEDS ORDERED: REGLAN5 MG ORAL (00:49)
[2020-08-16] MEDS ORDERED: CEPHALEXIN500 MG ORAL (00:50)
[2020-08-16 01:00] VITALS: BP 115/78
[2020-08-16] MEDS ORDERED: Pyridoxine 50mg tab ORAL SCH (09:00)
== END 2020-08-16 01:00 | disposition home or self-care (01) ==
LOC: EMR 22:37
DX: O03.4 Incomplete spontaneous abortion without complication (principal); O23.41 Unspecified infection of urinary tract in pregnancy, first trimester; O46.91 Antepartum hemorrhage, unspecified, first trimester; O21.9 Vomiting of pregnancy, unspecified; R10.9 Unspecified abdominal pain; R11.2 Nausea with vomiting, unspecified; Z3A.08 8 weeks gestation of pregnancy
CPT/HCPCS: 36415; 76801; 76817; 80053; 81003; 81025; 83690; 84702; 85025; 85610; 85730; 86850; 86900; 86901; 87086; 96361; 96374; 96375; J2405; J2765; J7030; Z7502; 99284

== ENCOUNTER 2020-08-18 14:10 | Emergency (ER) | payer OTHER ==
[~2020-08-18] VITALS: Ht 157.5 cm; Wt 56.2 kg
[~2020-08-18 14:10] MED LIST changes: +PYRIDOXINE HCL25 MG PO; +REGLAN5 MG ORAL; +UNISOM SLEEP AI25 MG PO
[2020-08-18] MEDS ORDERED: Morphine Sulfate 2mg/ml Inj(IV/IM USE ONLY) IVP ONE (15:00)
[2020-08-18] MEDS ORDERED: Metoclopramide 10mg/2ml Inj IVP ONE (15:00)
--- NOTE | 2020-08-18 15:00 | NUR ---
ED Nurse Note: PT. AAOX4. AMBULATORY. PT. IS C/O ABD PAIN WITH NAUSEA AND VOMITING. PT. STATED SHE IS 8 WEEKS . PT. STATED SHE TOOK ABORTI ON PILLS LAST TUESDAY BUT WAS NOT EFFECTIVE. Addendum: 08/18/20 at 1543 by JADYNO ED Nurse Note: PT. ALSO STATED HAVING ABROWNISH SPOTTING AND VOMITING BLOOD TINGED EMESIS
[2020-08-18 15:34] LABS: BASOPHILS % (AUTO) 0.6 % (0.0-2.0); EOSINOPHILS % (AUTO) 0.1 % (0.0-3.0); HEMATOCRIT 42.9 % (37.0-47.0); HEMOGLOBIN 14.3 G/DL (12.0-16.0); LYMPHOCYTES % (AUTO) 16.7 % (20.0-45.0); MEAN CORPUSCULAR VOLUME 96 FL (80-99); MONOCYTES % (AUTO) 5.4 % (1.0-10.0); NEUTROPHILS % (AUTO) 77.2 % (45.0-75.0); PLATELET COUNT 286 K/UL (150-450); RED BLOOD COUNT 4.46 M/UL (4.20-5.40); RED CELL DISTRIBUTION WIDTH 11.7 % (11.6-14.8)
--- NOTE | 2020-08-18 15:43 | NUR ---
ED Nurse Note: US AT THE BEDSIDE
[2020-08-18 15:54] LABS: ANION GAP 10 mmol/L (5-15); BLOOD UREA NITROGEN 6 mg/dL (7-18); CALCIUM 9.7 MG/DL (8.5-10.1); CARBON DIOXIDE 23 MMOL/L (21-32); CHLORIDE 102 MMOL/L (98-107); CREATININE 0.4 MG/DL (0.55-1.30); POTASSIUM 4.8 MMOL/L (3.5-5.1); SODIUM 135 MMOL/L (136-145)
[2020-08-18 15:59] LABS: ALANINE AMINOTRANSFERASE 101 U/L (12-78); ALKALINE PHOSPHATASE 76 U/L (46-116); ASPARTATE AMINO TRANSFERASE 65 U/L (15-37); BILIRUBIN,TOTAL 0.9 MG/DL (0.2-1.0)
--- NOTE | 2020-08-18 16:39 | Emergency Room Report ---
History of Present Illness General Chief Complaint: Complications Source: Patient Present Illness HPI 24-year-old female who is G4, and 8 weeks here complaining of 10 out of 10 diffuse abdominal pain and nausea. Patient has been here multiple times in the past week and a half for the same complaint. Patient was seen at [facility] [place] [facility] on August 15, 2020 status post taking 2 different kinds of pills, ultrasound was done and showed a live intrauterine with a heart rate detected being within normal limits. Patient has not yet followed up with CLAMP OPERATOR since her last visit and reports that has an upcoming appointment w [facility] OPER[facility] tomorrow however her nausea got worse today and home medication did not help. Denies any vaginal bleeding or spotting since the day that she took the pills which was last Tuesday. Denies any diarrhea constipation. Patient appears to be slightly tachycardic. After complete blood work was done and patient ultrasound showed live intrauterine and heart rate within normal limits patient mentions to me that when she took the 2 pills last week she immediately vomited them out and is not sure whether they stayed in her not however she did see the whole pill coming out of her mouth. Denies drug use tobacco smoking alcohol intake Allergies: Coded Allergies: No Known Allergies (Unverified , 01/14/17) COVID-19 Screening Contact w/high risk pt: No Experienced COVID-19 symptoms?: No COVID-19 Testing performed MATERIALS ANALYST: No Patient History Past Medical History: see triage record Past Surgical History: none Pertinent Family History: none Last Menstrual Period: 06/18/20 Now: Yes : 4 Para: 2 Reviewed Nursing Documentation: PMH: Agreed; PSxH: Agreed Nursing Documentation-PMH Past Medical History: No Stated History Review of Systems All Other Systems: negative except mentioned in HPI Physical Exam Vital Signs Date Time Temp Pulse Resp B/P (MAP) Pulse Ox O2 Delivery O2 Flow Rate FiO2 08/18/20 14:50 98.1 131 22 124/70 (88) 98 Room Air Sp02 EP Interpretation: reviewed, abnormal - tachy General Appearance: alert, GCS 15, non-toxic, mild distress Head: normocephalic, atraumatic Eyes: bilateral eye normal inspection, bilateral eye PERRL ENT: hearing grossly normal, normal pharynx, no angioedema, normal voice Neck: full range of motion, supple/symm/no masses Respiratory: chest non-tender, lungs clear, normal breath sounds, speaking full sentences Cardiovascular #1: regular rate, rhythm, no edema Cardiovascular #2: 2+ carotid (R), 2+ carotid (L), 2+ radial (R), 2+ radial (L), 2+ dorsalis pedis (R), 2+ dorsalis pedis (L) Gastrointestinal: normal bowel sounds, non tender, soft, non-distended, no guarding, no rebound Rectal: deferred Genitourinary: no CVA tenderness Musculoskeletal: back normal Neurologic: oriented Psychiatric: judgement/insight normal, memory normal, mood/affect normal, no suicidal/homicidal ideation Skin: no rash Lymphatic: no adenopathy Medical Decision Making PA Attestation Diagnosis and treatment plans were reviewed and discussed with my supervising physician Dr. Ferraro Diagnostic Impression: Primary Impression: Complication of Additional Impression: Abdominal pain during ER Course 24-year-old female who is G4, and 8 weeks here complaining of 10 out of 10 diffuse abdominal pain and nausea. Patient has been here multiple times in the past week and a half for the same complaint. Patient was seen at [facility] [place] [facility] on August 15, 2020 status post taking 2 different kinds of pills, ultrasound was done and showed a live intrauterine with a heart rate detected being within normal limits. Patient has not yet followed up with CLAMP OPERATOR since her last visit and reports that has an upcoming appointment with CLAMP OPERATOR tomorrow however her nausea got worse today and home medication did not help. Denies any vaginal bleeding or spotting since the day that she took the pills which was last Tuesday. Denies any diarrhea constipation. Patient appears to be slightly tachycardic. After complete blood work was done and patient ultrasound showed live intrauterine and heart rate within normal limits patient mentions to me that when she took the 2 pills last week she immediately vomited them out and is not sure whether they stayed in her not however she did see the whole pill coming out of her mouth. Denies drug use tobacco smoking alcohol intake Ddx considered but are not limited to: Ectopic , abdominal pain during , vaginal bleeding during , complication of , UTI during Patient is already taking antibiotic for UTI and has been urinating okay Vital signs: are WNL, pt. is afebrile H&PE are most consistent with: Complication of , abdominal pain during ORDERS: UA, urine cx, hcg quant, cbc, cmp, Diclegis, Tylenol ED INTERVENTIONS: NS bolus, morphine, Reglan. DISCHARGE: At this time pt. is stable for d/c to home. Will provide printed patient care instructions, and any necessary prescriptions. Care plan and follow up instructions have been discussed with the patient prior to discharge. Patient take medication as directed, follow-up with CLAMP OPERATOR in 12 to 24 hours, if worsening symptoms return to the emergency room. Patient left without giving a urine sample reporting that she felt dehydrated and she could not urinate at the time however has been urinating okay at home at this time it is okay for patient to leave without a urine sample as he had most recent one from her collected [address]/MRI/US Diagnostic Results CT/MRI/US Diagnostic Results : Imaging Test Ordered: OB ultrasound Impression Comparison: none Findings: Uterus measures 9.8 cm length by 6.4 cm AP. Within the endometrium, there is a gestational sac demonstrating a pole with a crown-rump length of 15 mm, corresponding to estimated gestational age of 7 weeks 6 days. There is positive heart activity, heart rate 163 bpm. No evidence of subchorionic hemorrhage. There is a yolk sac also visible. Left ovary measures 3.1 cm length. Right ovary measures 2.8 cm in length. Both ovaries demonstrate normal Doppler signal. No free cul-de-sac fluid. No myometrial abnormality. Impression: 7 weeks 6 day, by crown-rump length measurement, single live intrauterine . No unusual features Last Vital Signs Date Time Temp Pulse Resp B/P (MAP) Pulse Ox O2 Delivery O2 Flow Rate FiO2 08/18/20 14:50 98.1 131 22 124/70 (88) 98 Room Air Disposition: HOME, SELF-CARE Condition: Stable Scripts Acetaminophen* (TYLENOL EXTRA STRENGTH*) 500 Mg Tablet 500 MG ORAL Q8H PRN for Prn Headache/Temp > 101, #30 TAB 0 Refills Prov: Dorothy Jeter 08/18/20 Doxylamine/Pyridoxine Hcl (RADHA BEAULIEU 10-10 MG TABLET) 1 Each Tablet. 1 EACH PO BID, #20 TAB Prov: Dorothy Jeter 08/18/20 Patient Instructions: Abdominal Pain During Additional Instructions: Follow-up with your CLAMP OPERATOR in 12 to 24 hours, another ultrasound blood work needed, if worsening symptoms return to emergency room Dorothy Jeter Aug 18, 2020 16:39
[2020-08-18] MEDS ORDERED: TYLENOL EXTRA500 MG ORAL (16:40)
[2020-08-18] MEDS ORDERED: DICLEGIS DR 101 EACH PO (16:40)
[2020-08-18 16:46] VITALS: BP 111/73
--- NOTE | 2020-08-18 17:05 | Diagnostic Imaging Report ---
Indication: Timur pain and pelvic pain, patient, pelvic pain and spotting Technique: Transabdominal and transvaginal images of the pelvis. Doppler interrogation of the ovaries Comparison: none Findings: Uterus measures 9.8 cm length by 6.4 cm AP. Within the endometrium, there is a gestational sac demonstrating a pole with a crown-rump length of 15 mm, corresponding to estimated gestational age of 7 weeks 6 days. There is positive heart activity, heart rate 163 bpm. No evidence of subchorionic hemorrhage. There is a yolk sac also visible. Left ovary measures 3.1 cm length. Right ovary measures 2.8 cm in length. Both ovaries demonstrate normal Doppler signal. No free cul-de-sac fluid. No myometrial abnormality. Impression: 7 weeks 6 day, by crown-rump length measurement, single live intrauterine . No unusual features
== END 2020-08-18 16:46 | disposition home or self-care (01) ==
LOC: EMR 16:37
DX: O26.91 Pregnancy related conditions, unspecified, first trimester (principal); Z3A.01 Less than 8 weeks gestation of pregnancy; R10.9 Unspecified abdominal pain; R00.0 Tachycardia, unspecified
CPT/HCPCS: 36415; 76801; 76817; 80053; 84702; 85025; 96361; 96374; 96375; J2270; J2765; J7030; Z7502; 99284